=== PATIENT | male | born 1960 | race American Indian/Alaskan Native ===

== ENCOUNTER 2018-05-06 12:08 | Inpatient (IN) | payer OTHER ==
[2018-05-06] MEDS ORDERED: SOLU-Medrol IV ONE (13:41)
[2018-05-06] MEDS ORDERED: PROVENTIL IH ONE (13:41)
[2018-05-06] MEDS ORDERED: ATROVENT IH ONE (13:41)
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
[2018-05-06 13:48] LABS: Hematocrit 41.2 % (35.5-45.6); Hemoglobin 13.8 gm/dl (11.8-15.2); Mean Corpuscular HGB Conc 33 % (32-34); Mean Corpuscular Hemoglobin 29 pg (28-32); Mean Corpuscular Volume 87 fl (84-94); Platelet Count 296 K/mm3 (140-440); Red Blood Count 4.73 M/mm3 (3.65-5.03); Red Cell Distribution Width 13.7 % (13.2-15.2)
--- NOTE | 2018-05-06 13:58 | XRay Report ---
FINAL REPORT EXAM: XR CHEST 1V AP HISTORY: Dyspnea TECHNIQUE: Frontal portable examination of the chest PRIORS: None FINDINGS: Technologist reports left letter marker placed on right side of the patient. Limited examination due to prominent soft tissue attenuation. Cardiac silhouette and body habitus obscures the left lung base. Nonspecific streaky densities are present bilaterally with slight central predominance. This interstitial prominence may represent interstitial and/or vascular markings. There is no focal pulmonary consolidation. No evidence of pleural effusion or pneumothorax. The cardiac silhouette size is slightly enlarged. No evidence of acute skeletal pathology. IMPRESSION: Nonspecific interstitial prominence may reflect scarring or fibrosis. Acute considerations include reactive airways disease, vascular congestion, interstitial edema, viral process, or interstitial pneumonitis. Slight cardiomegaly
[2018-05-06 14:01] LABS: INR 0.98 (0.87-1.13)
[2018-05-06 14:02] LABS: Partial Thromboplastin Time 25.2 Sec. (24.2-36.6)
[2018-05-06 14:05] LABS: Alanine Aminotransferase 14 units/L (7-56); Albumin 3.8 g/dL (3.9-5); BUN/Creatinine Ratio 18; Blood Urea Nitrogen 14 mg/dL (9-20); Calcium 9.7 mg/dL (8.4-10.2); Hemolysis Index 6
[2018-05-06 14:47] LABS: Band Neutrophils # (Manual) 0.6 K/mm3; Basophils % (Manual) 0 % (0.0-1.8); Total Cells Counted 100
--- NOTE | 2018-05-06 15:35 | Cat Scan Report ---
FINAL REPORT EXAM: CT ANGIO CHEST HISTORY: SOB, hypoxia, recent travel TECHNIQUE: CT examination of the chest with IV contrast CT angiographic 2D and thick slab 3D image post-processing PRIORS: One-view chest 05/06/2018 FINDINGS: Cardiomegaly without pericardial effusion. Intact normal caliber thoracic aorta. Normal-appearing esophagus. No hilar mass or mediastinal adenopathy. Main pulmonary artery caliber larger than ascending thoracic aorta raises suspicion of vascular congestion and/or pulmonary arterial hypertension. The visualized pulmonary arteries are diffusely patent bilaterally. There is no filling defect to suggest PE. 4 mm nonobstructing right renal calculus. 2 mm nonobstructing left renal calculus. Colonic diverticulosis. No acute fracture. Multifocal nonspecific patchy opacities are noted in both lungs involving the posterior right upper lobe, posterior right middle lobe, posteromedial right lower lobe, and posterior inferior left lower lobe. No pneumothorax or pleural effusion. Slight pulmonary consolidation in the region of the opacities. Small subpleural pneumatoceles left upper lobe posteriorly. No separately identified lung mass. IMPRESSION: Cardiomegaly Main pulmonary artery caliber larger than ascending aorta may reflect vascular congestion and/or pulmonary arterial hypertension Multiple nonspecific pulmonary parenchymal opacities may be a combination of atelectasis, edema, and/or pneumonia. There may also be an underlying component of scarring Bilateral nonobstructing renal calculi No CT evidence of PE
[2018-05-06] MEDS ORDERED: TYLENOL PO ONE (18:03)
[2018-05-06] MEDS: HEPARIN SUB-Q SCH (22:09)
[2018-05-07] MEDS ORDERED: ZOFRAN IV PRN (00:02)
[2018-05-07] MEDS ORDERED: MORPHINE IV PRN (00:02)
[2018-05-07] MEDS ORDERED: SODIUM CHLORIDE FLUSH SYRINGE 10 ML IV PRN (00:02)
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
[2018-05-07] MEDS: SOLU-Medrol IV SCH ×3 (01:31→16:30)
[2018-05-07 05:41] LABS: BUN/Creatinine Ratio 19; Blood Urea Nitrogen 13 mg/dL (9-20); Calcium 9.6 mg/dL (8.4-10.2); Hemolysis Index 15
[2018-05-07] MEDS: HEPARIN SUB-Q SCH ×3 (06:51→22:17)
[2018-05-07] MEDS: DUONEB *Not for PRN Use IH SCH ×4 (08:29→20:07)
[2018-05-07] MEDS: LEVAQUIN 750MG/150ML 750 MG/150 ML BAG IV SCH (09:34)
[2018-05-07] MEDS: PEPCID PO SCH ×2 (09:35→22:11)
[2018-05-07] MEDS: COZAAR PO SCH (09:35)
[2018-05-07] MEDS: HCTZ PO SCH (09:35)
[2018-05-07] MEDS: SODIUM CHLORIDE FLUSH SYRINGE 10 ML IV SCH ×2 (09:36→22:00)
[2018-05-07] MEDS: TYLENOL PO PRN ×4 (09:38→22:38)
[2018-05-07] MEDS ORDERED: TELMISARTAN PO SCH (10:00)
[2018-05-07] MEDS ORDERED: HYDROCHLOROTHIAZID PO SCH (10:00)
--- NOTE | 2018-05-07 11:38 | Progress Note ---
Assessment and Plan Assessment and plan: Patient is a 57 yo man with a history of prostate cancer, hypertension, asthma and chronic hypoxic respiratory failure on 4L O2 at home due to ILD on Rituxan who pw SOB. He is visiting from [place] as an [facility]. He came without any of his medications including inhalers or nebulizer treatments. Pulse Ox dropped into the mid 80s in ED. He did call his duct layer supervisor, Dr. Gore, from [facility], who suggested that he go to the closest emergency department. * CTA chest IMPRESSION: Cardiomegaly Main pulmonary artery caliber larger than ascending aorta may reflect vascular congestion and/or pulmonary arterial hypertension Multiple nonspecific pulmonary parenchymal opacities may be a combination of atelectasis, edema, and/or pneumonia. There may also be an underlying component of scarring Bilateral nonobstructing renal calculi, No CT evidence of PE Acute on chronic respiratory failure with hypoxia Patient needs oxygen on regular basis. Patient is displaced from [facility] to [employer] Case management consulted whether he can get temporay O2 supply from his Oxygen company IV solumedrol and Duonebs initiated Interstitial lung disease with suspected bilateral aspiration pneumonia Duonebs IV Levaquin and IV Solumedrol Patient on Prednisone 10 mg to 15 mg po qd at home consult Pulmonology HTN (hypertension) Cont antihypertensives, low salt diet DVT prophylaxis On Lovenox History Interval history: Patient was seen and examined. Follow-up on current diagnosis of sob, improved some. Overnight uneventful. Patient denies any chest pain, shortness breath, nausea/vomiting or severe headaches. Imaging, nursing note, chart, labs and old chart reviewed. Discussed with patient. Hospitalist Physical - Physical exam Narrative exam: GEN: WDWN, NAD, morbid obese bmi 42.3, Awake, Alert, Orientated x 3 HEENT: NCAT, EOMI, PERRL, OP Clear NECK: supple, no adenopathy, no thyromegaly, no JVD CVS/HEART: RRR, normal S1S2, pulses present bilaterally CHEST/LUNGS: bilateral inspiratory crackles, Symmetrical chest expansion, good air entry bilaterally GI/Abdomen: soft, NTND, good bowel sounds, no guarding or rebound /Bladder: no suprapubic tenderness, no CVA or paraspinal tenderness EXT/Skin: leg edema, no obvious rash MSK: FROM x 4 Neuro: CN 2-12 grossly intact, no new focal deficits Psych: calm - Constitutional Vitals: Temp Pulse Resp BP Pulse Ox 97.9 F 89 20 138/78 91 05/07/18 04:16 05/07/18 08:45 05/07/18 08:45 05/07/18 04:16 05/07/18 08:32 General appearance: Present: no acute distress, well-nourished Results - Labs CBC & Chem 7: 05/06/18 13:30 05/07/18 04:22 Labs: Laboratory Last Values WBC 9.2 K/mm3 (4.5-11.0) 05/06/18 13:30 RBC 4.73 M/mm3 (3.65-5.03) 05/06/18 13:30 Hgb 13.8 gm/dl (11.8-15.2) 05/06/18 13:30 Hct 41.2 % (35.5-45.6) 05/06/18 13:30 MCV 87 fl (84-94) 05/06/18 13:30 MCH 29 pg (28-32) 05/06/18 13:30 MCHC 33 % (32-34) 05/06/18 13:30 RDW 13.7 % (13.2-15.2) 05/06/18 13:30 Plt Count 296 K/mm3 (140-440) 05/06/18 13:30 Add Manual Diff Complete 05/06/18 13:30 Total Counted 100 05/06/18 13:30 Seg Neutrophils % Field Artillery Operations Specialist 05/06/18 13:30 Seg Neuts % (Manual) 90.0 % (40.0-70.0) H 05/06/18 13:30 Band Neutrophils % 6.0 % 05/06/18 13:30 Lymphocytes % (Manual) 2.0 % (13.4-35.0) L 05/06/18 13:30 Reactive Lymphs % (Man) 0 % 05/06/18 13:30 Monocytes % (Manual) 1.0 % (0.0-7.3) 05/06/18 13:30 Eosinophils % (Manual) 1.0 % (0.0-4.3) 05/06/18 13:30 Basophils % (Manual) 0 % (0.0-1.8) 05/06/18 13:30 Metamyelocytes % 0 % 05/06/18 13:30 Myelocytes % 0 % 05/06/18 13:30 Promyelocytes % 0 % 05/06/18 13:30 Blast Cells % 0 % 05/06/18 13:30 Nucleated RBC % Not Reportable 05/06/18 13:30 Seg Neutrophils # Man 8.3 K/mm3 (1.8-7.7) H 05/06/18 13:30 Band Neutrophils # 0.6 K/mm3 05/06/18 13:30 Lymphocytes # (Manual) 0.2 K/mm3 (1.2-5.4) L 05/06/18 13:30 Abs React Lymphs (Man) 0.0 K/mm3 05/06/18 13:30 Monocytes # (Manual) 0.1 K/mm3 (0.0-0.8) 05/06/18 13:30 Eosinophils # (Manual) 0.1 K/mm3 (0.0-0.4) 05/06/18 13:30 Basophils # (Manual) 0.0 K/mm3 (0.0-0.1) 05/06/18 13:30 Metamyelocytes # 0.0 K/mm3 05/06/18 13:30 Myelocytes # 0.0 K/mm3 05/06/18 13:30 Promyelocytes # 0.0 K/mm3 05/06/18 13:30 Blast Cells # 0.0 K/mm3 05/06/18 13:30 WBC Morphology Not Reportable 05/06/18 13:30 Hypersegmented Neuts Not Reportable 05/06/18 13:30 Hyposegmented Neuts Not Reportable 05/06/18 13:30 Hypogranular Neuts Not Reportable 05/06/18 13:30 Smudge Cells Not Reportable 05/06/18 13:30 Toxic Granulation Not Reportable 05/06/18 13:30 Toxic Vacuolation Not Reportable 05/06/18 13:30 Dohle Bodies Not Reportable 05/06/18 13:30 Pelger-Huet Anomaly Not Reportable 05/06/18 13:30 Ines Rods Not Reportable 05/06/18 13:30 Platelet Estimate Not Reportable 05/06/18 13:30 Clumped Platelets Not Reportable 05/06/18 13:30 Plt Clumps, EDTA Not Reportable 05/06/18 13:30 Large Platelets Not Reportable 05/06/18 13:30 Giant Platelets Not Reportable 05/06/18 13:30 Platelet Satelliting Not Reportable 05/06/18 13:30 Plt Morphology Comment Not Reportable 05/06/18 13:30 RBC Morphology Not Reportable 05/06/18 13:30 Dimorphic RBCs Not Reportable 05/06/18 13:30 Polychromasia Few 05/06/18 13:30 Hypochromasia Not Reportable 05/06/18 13:30 Poikilocytosis Not Reportable 05/06/18 13:30 Anisocytosis Not Reportable 05/06/18 13:30 Microcytosis Not Reportable 05/06/18 13:30 Macrocytosis Not Reportable 05/06/18 13:30 Spherocytes Not Reportable 05/06/18 13:30 Pappenheimer Bodies Not Reportable 05/06/18 13:30 Sickle Cells Not Reportable 05/06/18 13:30 Target Cells Not Reportable 05/06/18 13:30 Tear Drop Cells Not Reportable 05/06/18 13:30 Ovalocytes Not Reportable 05/06/18 13:30 Helmet Cells Not Reportable 05/06/18 13:30 Delgado[place] Bodies Not Reportable 05/06/18 13:30 [place] Rings Not Reportable 05/06/18 13:30 Dustin Cells Not Reportable 05/06/18 13:30 Bite Cells Not Reportable 05/06/18 13:30 Crenated Cell Not Reportable 05/06/18 13:30 Elliptocytes Not Reportable 05/06/18 13:30 Acanthocytes (Spur) Not Reportable 05/06/18 13:30 Rouleaux Not Reportable 05/06/18 13:30 Hemoglobin C Crystals Not Reportable 05/06/18 13:30 Schistocytes Not Reportable 05/06/18 13:30 Malaria parasites Not Reportable 05/06/18 13:30 Herberth Bodies Not Reportable 05/06/18 13:30 Hem Pathologist Commnt No 05/06/18 13:30 PT 13.5 Sec. (12.2-14.9) 05/06/18 13:30 INR 0.98 (0.87-1.13) 05/06/18 13:30 APTT 25.2 Sec. (24.2-36.6) 05/06/18 13:30 D-Dimer 269.50 ng/mlDDU (0-234) H 05/06/18 13:30 Sodium 139 mmol/L (137-145) 05/07/18 04:22 Potassium 4.2 mmol/L (3.6-5.0) 05/07/18 04:22 Chloride 103.2 mmol/L (98-107) 05/07/18 04:22 Carbon Dioxide 22 mmol/L (22-30) 05/07/18 04:22 Anion Gap 18 mmol/L 05/07/18 04:22 BUN 13 mg/dL (9-20) 05/07/18 04:22 Creatinine 0.7 mg/dL (0.8-1.5) L 05/07/18 04:22 Estimated GFR > 60 ml/min 05/07/18 04:22 BUN/Creatinine Ratio 19 % 05/07/18 04:22 Glucose 177 mg/dL (75-100) H 05/07/18 04:22 Calcium 9.6 mg/dL (8.4-10.2) 05/07/18 04:22 Total Bilirubin 0.20 mg/dL (0.1-1.2) 05/06/18 13:30 AST 14 units/L (5-40) 05/06/18 13:30 ALT 14 units/L (7-56) 05/06/18 13:30 Alkaline Phosphatase 75 units/L (35-129) 05/06/18 13:30 Troponin T < 0.010 ng/mL (0.00-0.029) 05/06/18 13:30 NT-Pro-B Natriuret Pep 17.56 pg/mL (0-900) 05/06/18 13:30 Total Protein 7.8 g/dL (6.3-8.2) 05/06/18 13:30 Albumin 3.8 g/dL (3.9-5) L 05/06/18 13:30 Albumin/Globulin Ratio 1.0 % 05/06/18 13:30
[2018-05-07] MEDS ORDERED: EMPAGLIFLOZIN 10 MG PO SCH (14:15)
[2018-05-07] MEDS ORDERED: CIALIS 5 MG PO SCH (14:15)
[2018-05-07] MEDS ORDERED: D50W (25GM) Syringe IV PRN (15:08)
[2018-05-07] MEDS: HumaLOG SUB-Q SCH ×2 (16:30→22:18)
[2018-05-07] MEDS ORDERED: NEXIUM 20 MG PO SCH (16:30)
[2018-05-07] MEDS: CELLCEPT PO SCH ×2 (16:50→22:12)
[2018-05-07] MEDS: MEPRON PO SCH (16:51)
[2018-05-07] MEDS: COLACE PO SCH ×2 (16:51→22:14)
[2018-05-07] MEDS: LASIX PO SCH (16:53)
[2018-05-07] MEDS: PROTONIX PO SCH (16:58)
[2018-05-07] MEDS ORDERED: NON-FORMULARY (Melatonin [Melatin] 3 MG) PO SCH (22:00)
[2018-05-07] MEDS: FLOMAX PO SCH (22:13)
[2018-05-07] MEDS: DESYREL PO SCH (22:44)
[2018-05-08] MEDS: SOLU-Medrol IV SCH ×4 (01:10→22:14)
[2018-05-08 05:43] LABS: Hematocrit 42.2 % (35.5-45.6); Mean Corpuscular HGB Conc 33 % (32-34); Mean Corpuscular Hemoglobin 29 pg (28-32); Mean Corpuscular Volume 87 fl (84-94); Platelet Count 319 K/mm3 (140-440); Red Blood Count 4.87 M/mm3 (3.65-5.03)
[2018-05-08 05:59] LABS: Alanine Aminotransferase 14 units/L (7-56); Albumin 3.8 g/dL (3.9-5); BUN/Creatinine Ratio 18; Blood Urea Nitrogen 14 mg/dL (9-20); Calcium 9.6 mg/dL (8.4-10.2); Hemolysis Index 5
[2018-05-08] MEDS: HEPARIN SUB-Q SCH ×3 (06:02→22:15)
[2018-05-08 06:51] LABS: Basophils % (Manual) 0 % (0.0-1.8); Eosinophils % (Manual) 0 % (0.0-4.3); Platelet Estimate Consistent w Auto; Total Cells Counted 100
[2018-05-08] MEDS: DUONEB *Not for PRN Use IH SCH ×4 (07:29→19:31)
[2018-05-08] MEDS: HumaLOG SUB-Q SCH ×4 (07:30→22:27)
[2018-05-08] MEDS ORDERED: CALCIUM PO SCH (10:00)
[2018-05-08] MEDS ORDERED: LASIX PO SCH (10:00)
[2018-05-08] MEDS ORDERED: CHOLECALCIFEROL PO SCH (10:00)
[2018-05-08] MEDS ORDERED: VITAMIN D3 PO SCH (10:00)
--- NOTE | 2018-05-08 10:24 | Progress Note ---
Assessment and Plan Assessment and plan: Patient is a 57 yo man with a history of prostate cancer, hypertension, asthma and chronic hypoxic respiratory failure on 4L O2 at home due to ILD on Rituxan who pw SOB. He is visiting from [place] as an [facility]. He came without any of his medications including inhalers or nebulizer treatments. Pulse Ox dropped into the mid 80s in ED. He did call his lance crewmember, Dr. Gore, from [facility], who suggested that he go to the closest emergency department. * CTA chest IMPRESSION: Cardiomegaly Main pulmonary artery caliber larger than ascending aorta may reflect vascular congestion and/or pulmonary arterial hypertension Multiple nonspecific pulmonary parenchymal opacities may be a combination of atelectasis, edema, and/or pneumonia. There may also be an underlying component of scarring Bilateral nonobstructing renal calculi, No CT evidence of PE Acute on chronic respiratory failure with hypoxia Patient needs oxygen on regular basis. Patient is displaced from [facility] to [employer] [place], Case management consulted whether he can get temporay O2 supply from his Oxygen company IV solumedrol and Duonebs initiated Interstitial lung disease with suspected bilateral aspiration pneumonia/ pneumonitis Duonebs IV Levaquin and IV Solumedrol, Patient on Prednisone 10 mg to 15 mg po qd at home, consulted Pulmonology, await their evaluation, add mucinex Leukocytosis, most likely reactive from iv steroids HTN (hypertension) Cont antihypertensives, low salt diet DVT prophylaxis On Lovenox Hyperglycemia worsened by steroids: check a1c, on ssi GI prophylaxis: oral protonix Nutrition: cho/cardiac Advance care planning: full code Disposition: continue inpatient care, await Pulmonology evaluation, start to wean down iv steriods, start mucinex and tessalon perles today, anticipate d/c once Pulm clears. He will need refill on his home medications/ prescriptions upon discharge. History Interval history: Patient was seen and examined. Follow-up on current diagnosis of sob, improved some. Overnight uneventful. Patient denies any chest pain, shortness breath, nausea/vomiting or severe headaches. Imaging, nursing note, chart, labs and old chart reviewed. Discussed with patient. He c/o cough and phlegm getting stuck in his throat. He also called his PCP, Dr. Gore and spoke with his triage nurse Chloe. I also spoke with her on speakerphone. She will send his medication and last progress note via Fax per patient wishes. Hospitalist Physical - Physical exam Narrative exam: GEN: WDWN, NAD, morbid obese bmi 42.3, Awake, Alert, Orientated x 3 HEENT: NCAT, EOMI, PERRL, OP Clear NECK: supple, no adenopathy, no thyromegaly, no JVD CVS/HEART: RRR, normal S1S2, pulses present bilaterally CHEST/LUNGS: bilateral inspiratory crackles, Symmetrical chest expansion, good air entry bilaterally GI/Abdomen: soft, NTND, good bowel sounds, no guarding or rebound /Bladder: no suprapubic tenderness, no CVA or paraspinal tenderness EXT/Skin: leg edema, no obvious rash MSK: FROM x 4 Neuro: CN 2-12 grossly intact, no new focal deficits Psych: calm - Constitutional Vitals: Temp Pulse Resp BP Pulse Ox 97.8 F 89 18 120/71 92 05/08/18 05:21 05/08/18 07:37 05/08/18 07:37 05/08/18 05:21 05/08/18 07:30 General appearance: Present: no acute distress, well-nourished Results - Labs CBC & Chem 7: 05/08/18 04:28 05/08/18 04:28 Labs: Laboratory Last Values WBC 14.7 K/mm3 (4.5-11.0) H 05/08/18 04:28 RBC 4.87 M/mm3 (3.65-5.03) 05/08/18 04:28 Hgb 14.0 gm/dl (11.8-15.2) 05/08/18 04:28 Hct 42.2 % (35.5-45.6) 05/08/18 04:28 MCV 87 fl (84-94) 05/08/18 04:28 MCH 29 pg (28-32) 05/08/18 04:28 MCHC 33 % (32-34) 05/08/18 04:28 RDW 14.0 % (13.2-15.2) 05/08/18 04:28 Plt Count 319 K/mm3 (140-440) 05/08/18 04:28 Add Manual Diff Complete 05/08/18 04:28 Total Counted 100 05/08/18 04:28 Seg Neutrophils % Hospitality Services Manager 05/08/18 04:28 Seg Neuts % (Manual) 99.0 % (40.0-70.0) H 05/08/18 04:28 Band Neutrophils % 0 % 05/08/18 04:28 Lymphocytes % (Manual) 0 % (13.4-35.0) L 05/08/18 04:28 Reactive Lymphs % (Man) 0 % 05/08/18 04:28 Monocytes % (Manual) 1.0 % (0.0-7.3) 05/08/18 04:28 Eosinophils % (Manual) 0 % (0.0-4.3) 05/08/18 04:28 Basophils % (Manual) 0 % (0.0-1.8) 05/08/18 04:28 Metamyelocytes % 0 % 05/08/18 04:28 Myelocytes % 0 % 05/08/18 04:28 Promyelocytes % 0 % 05/08/18 04:28 Blast Cells % 0 % 05/08/18 04:28 Nucleated RBC % Not Reportable 05/08/18 04:28 Seg Neutrophils # Man 14.6 K/mm3 (1.8-7.7) H 05/08/18 04:28 Band Neutrophils # 0.0 K/mm3 05/08/18 04:28 Lymphocytes # (Manual) 0.0 K/mm3 (1.2-5.4) L 05/08/18 04:28 Abs React Lymphs (Man) 0.0 K/mm3 05/08/18 04:28 Monocytes # (Manual) 0.1 K/mm3 (0.0-0.8) 05/08/18 04:28 Eosinophils # (Manual) 0.0 K/mm3 (0.0-0.4) 05/08/18 04:28 Basophils # (Manual) 0.0 K/mm3 (0.0-0.1) 05/08/18 04:28 Metamyelocytes # 0.0 K/mm3 05/08/18 04:28 Myelocytes # 0.0 K/mm3 05/08/18 04:28 Promyelocytes # 0.0 K/mm3 05/08/18 04:28 Blast Cells # 0.0 K/mm3 05/08/18 04:28 WBC Morphology Not Reportable 05/08/18 04:28 Hypersegmented Neuts Not Reportable 05/08/18 04:28 Hyposegmented Neuts Not Reportable 05/08/18 04:28 Hypogranular Neuts Not Reportable 05/08/18 04:28 Smudge Cells Not Reportable 05/08/18 04:28 Toxic Granulation Not Reportable 05/08/18 04:28 Toxic Vacuolation Not Reportable 05/08/18 04:28 Dohle Bodies Not Reportable 05/08/18 04:28 Pelger-Huet Anomaly Not Reportable 05/08/18 04:28 Ines Rods Not Reportable 05/08/18 04:28 Platelet Estimate Consistent w auto 05/08/18 04:28 Clumped Platelets Not Reportable 05/08/18 04:28 Plt Clumps, EDTA Not Reportable 05/08/18 04:28 Large Platelets Not Reportable 05/08/18 04:28 Giant Platelets Not Reportable 05/08/18 04:28 Platelet Satelliting Not Reportable 05/08/18 04:28 Plt Morphology Comment Not Reportable 05/08/18 04:28 RBC Morphology Not Reportable 05/08/18 04:28 Dimorphic RBCs Not Reportable 05/08/18 04:28 Polychromasia Not Reportable 05/08/18 04:28 Hypochromasia Not Reportable 05/08/18 04:28 Poikilocytosis Not Reportable 05/08/18 04:28 Anisocytosis Not Reportable 05/08/18 04:28 Microcytosis Not Reportable 05/08/18 04:28 Macrocytosis Not Reportable 05/08/18 04:28 Spherocytes Not Reportable 05/08/18 04:28 Pappenheimer Bodies Not Reportable 05/08/18 04:28 Sickle Cells Not Reportable 05/08/18 04:28 Target Cells Not Reportable 05/08/18 04:28 Tear Drop Cells Not Reportable 05/08/18 04:28 Ovalocytes Not Reportable 05/08/18 04:28 Helmet Cells Not Reportable 05/08/18 04:28 Delgado-[place] Bodies Not Reportable 05/08/18 04:28 [place] Rings Not Reportable 05/08/18 04:28 Dustin Cells Not Reportable 05/08/18 04:28 Bite Cells Not Reportable 05/08/18 04:28 Crenated Cell Not Reportable 05/08/18 04:28 Elliptocytes Not Reportable 05/08/18 04:28 Acanthocytes (Spur) Not Reportable 05/08/18 04:28 Rouleaux Not Reportable 05/08/18 04:28 Hemoglobin C Crystals Not Reportable 05/08/18 04:28 Schistocytes Not Reportable 05/08/18 04:28 Malaria parasites Not Reportable 05/08/18 04:28 Herber[place] Bodies Not Reportable 05/08/18 04:28 Hem Pathologist Commnt No 05/08/18 04:28 PT 13.5 Sec. (12.2-14.9) 05/06/18 13:30 INR 0.98 (0.87-1.13) 05/06/18 13:30 APTT 25.2 Sec. (24.2-36.6) 05/06/18 13:30 D-Dimer 269.50 ng/mlDDU (0-234) H 05/06/18 13:30 Sodium 140 mmol/L (137-145) 05/08/18 04:28 Potassium 4.2 mmol/L (3.6-5.0) 05/08/18 04:28 Chloride 101.5 mmol/L (98-107) 05/08/18 04:28 Carbon Dioxide 24 mmol/L (22-30) 05/08/18 04:28 Anion Gap 19 mmol/L 05/08/18 04:28 BUN 14 mg/dL (9-20) 05/08/18 04:28 Creatinine 0.8 mg/dL (0.8-1.5) 05/08/18 04:28 Estimated GFR > 60 ml/min 05/08/18 04:28 BUN/Creatinine Ratio 18 % 05/08/18 04:28 Glucose 224 mg/dL (75-100) H 05/08/18 04:28 POC Glucose 188 (70-105) H 05/08/18 07:54 Calcium 9.6 mg/dL (8.4-10.2) 05/08/18 04:28 Total Bilirubin 0.20 mg/dL (0.1-1.2) 05/08/18 04:28 AST 12 units/L (5-40) 05/08/18 04:28 ALT 14 units/L (7-56) 05/08/18 04:28 Alkaline Phosphatase 71 units/L (35-129) 05/08/18 04:28 Troponin T < 0.010 ng/mL (0.00-0.029) 05/06/18 13:30 NT-Pro-B Natriuret Pep 17.56 pg/mL (0-900) 05/06/18 13:30 Total Protein 7.7 g/dL (6.3-8.2) 05/08/18 04:28 Albumin 3.8 g/dL (3.9-5) L 05/08/18 04:28 Albumin/Globulin Ratio 1.0 % 05/08/18 04:28
[2018-05-08] MEDS: COLACE PO SCH ×2 (10:36→22:14)
[2018-05-08] MEDS: OYSCO D 500 MG-200 UNIT PO SCH (10:37)
[2018-05-08] MEDS: PROTONIX PO SCH (10:37)
[2018-05-08] MEDS: LASIX PO SCH (10:37)
[2018-05-08] MEDS: HCTZ PO SCH (10:37)
[2018-05-08] MEDS: CELLCEPT PO SCH ×2 (10:38→22:13)
[2018-05-08] MEDS: COZAAR PO SCH (10:38)
[2018-05-08] MEDS: MEPRON PO SCH (10:39)
[2018-05-08] MEDS: LEVAQUIN 750MG/150ML 750 MG/150 ML BAG IV SCH (10:39)
[2018-05-08] MEDS: SODIUM CHLORIDE FLUSH SYRINGE 10 ML IV SCH ×2 (10:40→22:28)
[2018-05-08] MEDS: PEPCID PO SCH ×2 (10:40→22:13)
[2018-05-08] MEDS: MUCINEX ER PO SCH ×2 (13:45→22:14)
[2018-05-08] MEDS: TESSALON PERLES PO SCH ×2 (13:45→22:14)
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
[2018-05-08] MEDS: FLOMAX PO SCH (22:14)
[2018-05-08] MEDS: DESYREL PO SCH (22:14)
[2018-05-09] MEDS: SOLU-Medrol IV SCH ×3 (04:30→22:08)
[2018-05-09 04:57] LABS: Hematocrit 43.6 % (35.5-45.6); Hemoglobin 14.6 gm/dl (11.8-15.2); Mean Corpuscular HGB Conc 33 % (32-34); Mean Corpuscular Hemoglobin 29 pg (28-32); Mean Corpuscular Volume 87 fl (84-94); Platelet Count 328 K/mm3 (140-440); Red Blood Count 5.03 M/mm3 (3.65-5.03); Red Cell Distribution Width 13.9 % (13.2-15.2)
[2018-05-09 05:14] LABS: BUN/Creatinine Ratio 23; Blood Urea Nitrogen 21 mg/dL (9-20); Calcium 9.3 mg/dL (8.4-10.2); Hemolysis Index 9
[2018-05-09] MEDS: HEPARIN SUB-Q SCH ×3 (05:55→22:08)
[2018-05-09] MEDS: TESSALON PERLES PO SCH ×3 (05:56→22:09)
[2018-05-09] MEDS: TYLENOL PO PRN ×2 (06:00→09:03)
[2018-05-09] MEDS: HumaLOG SUB-Q SCH ×4 (08:47→22:08)
[2018-05-09] MEDS: CELLCEPT PO SCH ×2 (08:59→22:08)
[2018-05-09] MEDS: COLACE PO SCH ×2 (08:59→22:09)
[2018-05-09] MEDS: LEVAQUIN 750MG/150ML 750 MG/150 ML BAG IV SCH (08:59)
[2018-05-09] MEDS: MEPRON PO SCH (09:00)
[2018-05-09] MEDS: COZAAR PO SCH (09:00)
[2018-05-09] MEDS: HCTZ PO SCH (09:00)
[2018-05-09] MEDS: LASIX PO SCH (09:01)
[2018-05-09] MEDS: PROTONIX PO SCH (09:01)
[2018-05-09] MEDS: PEPCID PO SCH ×2 (09:01→22:09)
[2018-05-09] MEDS: OYSCO D 500 MG-200 UNIT PO SCH (09:01)
[2018-05-09] MEDS: DUONEB *Not for PRN Use IH SCH ×4 (09:28→20:19)
[2018-05-09] MEDS: MUCINEX ER PO SCH ×2 (10:21→22:09)
[2018-05-09] MEDS: SODIUM CHLORIDE FLUSH SYRINGE 10 ML IV SCH ×2 (10:21→22:10)
--- NOTE | 2018-05-09 12:35 | Progress Note ---
Assessment and Plan Acute on chronic respiratory failure. Appears to be improving or at least stable at this point Interstitial lung disease -Possibly cryptogenic pneumonia by history, on immunosuppressive therapy with prednisone/CellCept/Rituxan infusion ABDIEL. On BiPAP at home plus oxygen 2 L/m Prediabetes. Per history Hypertension Obesity Recommendations Keep oxymetry over 90% at all times Currently on Solu-Medrol 80 mg IV. Discussed with hospitalist to switch him to prednisone 30 mg daily and monitor blood sugar status Continue CellCept at current dose Monitor blood sugars levels, sliding scale and treat as needed Levofloxacin probably optional (a treatment about a month ago), a few so will give minimum of 5 days. DVT prophylaxis The patient can use his BiPAP at the hospital with oxygen bled in at 2-4 L per minute Need to ambulate with nurses and monitor need for additional oxygen support on exercise Discussed with patient and in detail. All questions answered. I'm going to call do today, in order to see what options are available for the patient to be transferred back to [place]. This is her ongoing request. He will definitely need to stay under some degree of medical surveillance with close pulmonary follow-up, until things Stabilize further. Whether This can Be done as an outpatient at this point is not yet clear Subjective Date of service: 05/09/18 Interval history: Reports to be feeling slightly better today. Still complaining of being short of breath with desaturations on his personal oximeter of 87%, when walking to the restroom. Using oxygen 4 L No additional complaints. Very anxious about going back to [place] as soon as possible Objective Vital Signs - 12hr 05/09/18 05/09/18 05/09/18 05:31 08:38 09:00 Temperature 97.7 F Pulse Rate 75 80 78 Pulse Rate [ Anterior Bilateral Throughout] Pulse Rate [ Throughout] Respiratory 20 20 Rate Respiratory Rate [Anterior Bilateral Throughout] Respiratory Rate [ Throughout] Blood Pressure 131/78 144/80 144/80 O2 Sat by Pulse 95 96 Oximetry 05/09/18 05/09/18 05/09/18 09:03 09:30 09:31 Temperature Pulse Rate Pulse Rate [ 73 Anterior Bilateral Throughout] Pulse Rate [ 76 Throughout] Respiratory 16 Rate Respiratory 18 Rate [Anterior Bilateral Throughout] Respiratory 18 Rate [ Throughout] Blood Pressure O2 Sat by Pulse 96 Oximetry 05/09/18 10:03 Temperature Pulse Rate Pulse Rate [ Anterior Bilateral Throughout] Pulse Rate [ Throughout] Respiratory 20 Rate Respiratory Rate [Anterior Bilateral Throughout] Respiratory Rate [ Throughout] Blood Pressure O2 Sat by Pulse Oximetry Constitutional: no acute distress, alert Eyes: non-icteric ENT: oropharynx moist, other (Mallampati 4) Ascultation: Bilateral: clear, diminished breath sounds, rales (fine, and inspiratory, bilateral bases) Integumentary: normal Extremities: no cyanosis, no edema Neurologic: normal mental status, non-focal exam, CN II-XII normal, motor strength normal and Psychiatric: mood appropriate CBC and BMP: 05/09/18 04:36 05/09/18 04:36 ABG, PT/INR, D-dimer: PT/INR, D-dimer PT 13.5 Sec. (12.2-14.9) 05/06/18 13:30 INR 0.98 (0.87-1.13) 05/06/18 13:30 D-Dimer 269.50 ng/mlDDU (0-234) H 05/06/18 13:30 Abnormal lab findings: Abnormal Labs 05/06/18 05/06/18 05/06/18 13:30 13:30 13:30 WBC Seg Neuts % (Manual) 90.0 H Lymphocytes % (Manual) 2.0 L Seg Neutrophils # Man 8.3 H Lymphocytes # (Manual) 0.2 L D-Dimer 269.50 H Chloride BUN Creatinine Glucose 142 H POC Glucose Hemoglobin A1c Albumin 3.8 L 05/07/18 05/07/18 05/07/18 04:22 17:56 21:47 WBC Seg Neuts % (Manual) Lymphocytes % (Manual) Seg Neutrophils # Man Lymphocytes # (Manual) D-Dimer Chloride BUN Creatinine 0.7 L Glucose 177 H POC Glucose 287 H 321 H Hemoglobin A1c Albumin 05/08/18 05/08/18 05/08/18 04:28 04:28 07:54 WBC 14.7 H Seg Neuts % (Manual) 99.0 H Lymphocytes % (Manual) 0 L Seg Neutrophils # Man 14.6 H Lymphocytes # (Manual) 0.0 L D-Dimer Chloride BUN Creatinine Glucose 224 H POC Glucose 188 H Hemoglobin A1c Albumin 3.8 L 05/08/18 05/08/18 05/08/18 12:03 15:49 21:45 WBC Seg Neuts % (Manual) Lymphocytes % (Manual) Seg Neutrophils # Man Lymphocytes # (Manual) D-Dimer Chloride BUN Creatinine Glucose POC Glucose 233 H 235 H 280 H Hemoglobin A1c Albumin 05/09/18 05/09/18 05/09/18 04:36 04:36 04:36 WBC 15.4 H Seg Neuts % (Manual) Lymphocytes % (Manual) Seg Neutrophils # Man Lymphocytes # (Manual) D-Dimer Chloride 95.1 L BUN 21 H Creatinine Glucose 251 H POC Glucose Hemoglobin A1c 7.6 H Albumin 05/09/18 05/09/18 07:34 11:45 WBC Seg Neuts % (Manual) Lymphocytes % (Manual) Seg Neutrophils # Man Lymphocytes # (Manual) D-Dimer Chloride BUN Creatinine Glucose POC Glucose 208 H 243 H Hemoglobin A1c Albumin
[2018-05-09] MEDS: PERCOCET 5/325 PO PRN ×2 (12:49→22:09)
--- NOTE | 2018-05-09 15:20 | Progress Note ---
Assessment and Plan Assessment and plan: Patient is a 57 yo man with a history of prostate cancer, hypertension, asthma and chronic hypoxic respiratory failure on 4L O2 at home due to ILD on Rituxan who pw SOB. He is visiting from [place] as an [place] [facility] [place]. He came without any of his medications including inhalers or nebulizer treatments. Pulse Ox dropped into the mid 80s in ED. He did call his director quality systems, Dr. Gore, from [facility], who suggested that he go to the closest emergency department. pw MERCADO and hypoxia on exertion * CTA chest IMPRESSION: Cardiomegaly Main pulmonary artery caliber larger than ascending aorta may reflect vascular congestion and/or pulmonary arterial hypertension Multiple nonspecific pulmonary parenchymal opacities may be a combination of atelectasis, edema, and/or pneumonia. There may also be an underlying component of scarring Bilateral nonobstructing renal calculi, No CT evidence of PE Acute on chronic respiratory failure with hypoxia Patient needs oxygen on regular basis. Patient is displaced from [facility] to [facility] [place], on 4L at [place] IV solumedrol and Duonebs initiated Patient would like to be transfered to [place], since his doctors are there. Dr Curtis to speak to Dr Gore, was dw case operator, plan to transfer if they accept Interstitial lung disease with suspected bilateral aspiration pneumonia/ pneumonitis Duonebs IV Levaquin and IV Solumedrol, Patient on Prednisone 10 mg to 15 mg po qd at home, consulted Pulmonology, await their evaluation, add mucinex Leukocytosis, most likely reactive from iv steroids HTN (hypertension) Cont antihypertensives, low salt diet DVT prophylaxis On Lovenox Hyperglycemia worsened by steroids: check a1c, on ssi GI prophylaxis: oral protonix Nutrition: cho/cardiac Advance care planning: full code Disposition: continue inpatient care, await Pulmonology evaluation, start to wean down iv steriods, start mucinex and tessalon perles today, anticipate d/c once Pulm clears. He will need refill on his home medications/ prescriptions upon discharge. History Interval history: The nurse noted that patient desaturates on ambulation Review of systems Constitutional: No fevers, no malaise, no joint pains CVS: No chest pain, no orthopnea, , no pedal edema GI: No abdominal pain, no diarrhea, no vomiting, no constipation Respiratory: Complaining of dyspnea on exertion, no wheezing, no coughing Hospitalist Physical - Physical exam Narrative exam: General.: Appears well, no distress, nontoxic HEENT: Moist mucous membranes, extraocular muscles intact, no lymphadenopathy Neck: supple Cardiac: S1-S2 heard Lungs: Dry crackles, decreased air entry Abdomen: soft , nontender, nondistended, bowel sounds positive Extremities: no edema clubbing or cyanosis Skin: no rash or lesions Neurologic: no gross focal deficits Psych: appropriate behavior, appropriate mood, corporative, judgment intact - Constitutional Vitals: Temp Pulse Resp BP Pulse Ox 97.9 F 92 H 24 140/75 97 05/09/18 13:50 05/09/18 13:50 05/09/18 13:50 05/09/18 13:50 05/09/18 13:50 General appearance: Present: no acute distress, well-nourished Results - Labs CBC & Chem 7: 05/09/18 04:36 05/09/18 04:36 Labs: Laboratory Last Values WBC 15.4 K/mm3 (4.5-11.0) H 05/09/18 04:36 RBC 5.03 M/mm3 (3.65-5.03) 05/09/18 04:36 Hgb 14.6 gm/dl (11.8-15.2) 05/09/18 04:36 Hct 43.6 % (35.5-45.6) 05/09/18 04:36 MCV 87 fl (84-94) 05/09/18 04:36 MCH 29 pg (28-32) 05/09/18 04:36 MCHC 33 % (32-34) 05/09/18 04:36 RDW 13.9 % (13.2-15.2) 05/09/18 04:36 Plt Count 328 K/mm3 (140-440) 05/09/18 04:36 Add Manual Diff Complete 05/08/18 04:28 Total Counted 100 05/08/18 04:28 Seg Neutrophils % Cigar Head Holer 05/08/18 04:28 Seg Neuts % (Manual) 99.0 % (40.0-70.0) H 05/08/18 04:28 Band Neutrophils % 0 % 05/08/18 04:28 Lymphocytes % (Manual) 0 % (13.4-35.0) L 05/08/18 04:28 Reactive Lymphs % (Man) 0 % 05/08/18 04:28 Monocytes % (Manual) 1.0 % (0.0-7.3) 05/08/18 04:28 Eosinophils % (Manual) 0 % (0.0-4.3) 05/08/18 04:28 Basophils % (Manual) 0 % (0.0-1.8) 05/08/18 04:28 Metamyelocytes % 0 % 05/08/18 04:28 Myelocytes % 0 % 05/08/18 04:28 Promyelocytes % 0 % 05/08/18 04:28 Blast Cells % 0 % 05/08/18 04:28 Nucleated RBC % Not Reportable 05/08/18 04:28 Seg Neutrophils # Man 14.6 K/mm3 (1.8-7.7) H 05/08/18 04:28 Band Neutrophils # 0.0 K/mm3 05/08/18 04:28 Lymphocytes # (Manual) 0.0 K/mm3 (1.2-5.4) L 05/08/18 04:28 Abs React Lymphs (Man) 0.0 K/mm3 05/08/18 04:28 Monocytes # (Manual) 0.1 K/mm3 (0.0-0.8) 05/08/18 04:28 Eosinophils # (Manual) 0.0 K/mm3 (0.0-0.4) 05/08/18 04:28 Basophils # (Manual) 0.0 K/mm3 (0.0-0.1) 05/08/18 04:28 Metamyelocytes # 0.0 K/mm3 05/08/18 04:28 Myelocytes # 0.0 K/mm3 05/08/18 04:28 Promyelocytes # 0.0 K/mm3 05/08/18 04:28 Blast Cells # 0.0 K/mm3 05/08/18 04:28 WBC Morphology Not Reportable 05/08/18 04:28 Hypersegmented Neuts Not Reportable 05/08/18 04:28 Hyposegmented Neuts Not Reportable 05/08/18 04:28 Hypogranular Neuts Not Reportable 05/08/18 04:28 Smudge Cells Not Reportable 05/08/18 04:28 Toxic Granulation Not Reportable 05/08/18 04:28 Toxic Vacuolation Not Reportable 05/08/18 04:28 Dohle Bodies Not Reportable 05/08/18 04:28 Pelger-Huet Anomaly Not Reportable 05/08/18 04:28 Ines Rods Not Reportable 05/08/18 04:28 Platelet Estimate Consistent w auto 05/08/18 04:28 Clumped Platelets Not Reportable 05/08/18 04:28 Plt Clumps, EDTA Not Reportable 05/08/18 04:28 Large Platelets Not Reportable 05/08/18 04:28 Giant Platelets Not Reportable 05/08/18 04:28 Platelet Satelliting Not Reportable 05/08/18 04:28 Plt Morphology Comment Not Reportable 05/08/18 04:28 RBC Morphology Not Reportable 05/08/18 04:28 Dimorphic RBCs Not Reportable 05/08/18 04:28 Polychromasia Not Reportable 05/08/18 04:28 Hypochromasia Not Reportable 05/08/18 04:28 Poikilocytosis Not Reportable 05/08/18 04:28 Anisocytosis Not Reportable 05/08/18 04:28 Microcytosis Not Reportable 05/08/18 04:28 Macrocytosis Not Reportable 05/08/18 04:28 Spherocytes Not Reportable 05/08/18 04:28 Pappenheimer Bodies Not Reportable 05/08/18 04:28 Sickle Cells Not Reportable 05/08/18 04:28 Target Cells Not Reportable 05/08/18 04:28 Tear Drop Cells Not Reportable 05/08/18 04:28 Ovalocytes Not Reportable 05/08/18 04:28 Helmet Cells Not Reportable 05/08/18 04:28 [place] Bodies Not Reportable 05/08/18 04:28 [place] Rings Not Reportable 05/08/18 04:28 Dustin Cells Not Reportable 05/08/18 04:28 Bite Cells Not Reportable 05/08/18 04:28 Crenated Cell Not Reportable 05/08/18 04:28 Elliptocytes Not Reportable 05/08/18 04:28 Acanthocytes (Spur) Not Reportable 05/08/18 04:28 Rouleaux Not Reportable 05/08/18 04:28 Hemoglobin C Crystals Not Reportable 05/08/18 04:28 Schistocytes Not Reportable 05/08/18 04:28 Malaria parasites Not Reportable 05/08/18 04:28 [place] Bodies Not Reportable 05/08/18 04:28 Hem Pathologist Commnt No 05/08/18 04:28 PT 13.5 Sec. (12.2-14.9) 05/06/18 13:30 INR 0.98 (0.87-1.13) 05/06/18 13:30 APTT 25.2 Sec. (24.2-36.6) 05/06/18 13:30 D-Dimer 269.50 ng/mlDDU (0-234) H 05/06/18 13:30 Sodium 137 mmol/L (137-145) 05/09/18 04:36 Potassium 4.2 mmol/L (3.6-5.0) 05/09/18 04:36 Chloride 95.1 mmol/L (98-107) L 05/09/18 04:36 Carbon Dioxide 26 mmol/L (22-30) 05/09/18 04:36 Anion Gap 20 mmol/L 05/09/18 04:36 BUN 21 mg/dL (9-20) H 05/09/18 04:36 Creatinine 0.9 mg/dL (0.8-1.5) 05/09/18 04:36 Estimated GFR > 60 ml/min 05/09/18 04:36 BUN/Creatinine Ratio 23 % 05/09/18 04:36 Glucose 251 mg/dL (75-100) H 05/09/18 04:36 POC Glucose 243 (70-105) H 05/09/18 11:45 Hemoglobin A1c 7.6 % (4-6) H 05/09/18 04:36 Calcium 9.3 mg/dL (8.4-10.2) 05/09/18 04:36 Total Bilirubin 0.20 mg/dL (0.1-1.2) 05/08/18 04:28 AST 12 units/L (5-40) 05/08/18 04:28 ALT 14 units/L (7-56) 05/08/18 04:28 Alkaline Phosphatase 71 units/L (35-129) 05/08/18 04:28 Troponin T < 0.010 ng/mL (0.00-0.029) 05/06/18 13:30 NT-Pro-B Natriuret Pep 17.56 pg/mL (0-900) 05/06/18 13:30 Total Protein 7.7 g/dL (6.3-8.2) 05/08/18 04:28 Albumin 3.8 g/dL (3.9-5) L 05/08/18 04:28 Albumin/Globulin Ratio 1.0 % 05/08/18 04:28
[2018-05-09] MEDS: DESYREL PO SCH (22:09)
[2018-05-09] MEDS: FLOMAX PO SCH (22:09)
[2018-05-10] MEDS: TESSALON PERLES PO SCH ×3 (06:23→22:08)
[2018-05-10] MEDS: HEPARIN SUB-Q SCH ×3 (06:23→22:09)
[2018-05-10] MEDS: SOLU-Medrol IV SCH ×3 (06:24→18:16)
[2018-05-10] MEDS: TYLENOL PO PRN ×2 (06:28→10:38)
[2018-05-10] MEDS: HumaLOG SUB-Q SCH ×4 (08:16→22:09)
[2018-05-10] MEDS: DUONEB *Not for PRN Use IH SCH ×4 (08:40→20:32)
[2018-05-10] MEDS: LEVAQUIN 750MG/150ML 750 MG/150 ML BAG IV SCH (10:25)
[2018-05-10] MEDS: OYSCO D 500 MG-200 UNIT PO SCH (10:29)
[2018-05-10] MEDS: COLACE PO SCH ×2 (10:29→22:08)
[2018-05-10] MEDS: COZAAR PO SCH (10:30)
[2018-05-10] MEDS: MUCINEX ER PO SCH ×2 (10:30→22:08)
[2018-05-10] MEDS: PEPCID PO SCH ×2 (10:30→22:08)
[2018-05-10] MEDS: HCTZ PO SCH (10:30)
[2018-05-10] MEDS: PROTONIX PO SCH (10:31)
[2018-05-10] MEDS: CELLCEPT PO SCH ×2 (10:31→22:08)
[2018-05-10] MEDS: LASIX PO SCH (10:32)
[2018-05-10] MEDS: MEPRON PO SCH (10:32)
[2018-05-10] MEDS: SODIUM CHLORIDE FLUSH SYRINGE 10 ML IV SCH ×2 (10:33→22:10)
--- NOTE | 2018-05-10 11:33 | Progress Note ---
Assessment and Plan Acute on chronic respiratory failure. Appears to be improving or at least stable at this point Interstitial lung disease -Possibly cryptogenic pneumonia by history, on immunosuppressive therapy with prednisone/CellCept/Rituxan infusion ABDIEL. On BiPAP at home plus oxygen 2 L/m Prediabetes. Per history Hypertension Obesity Recommendations Keep oxymetry over 90% at all times Taper down Solu-Medrol Start Prednisone 30 mg daily , adjust up,per clinical and blood sugar status Continue CellCept at current dose Monitor blood sugars levels, sliding scale and treat as needed Levofloxacin x 5-7 days. DVT prophylaxis The patient can use his BiPAP at the hospital with oxygen bled in at 2-4 L per minute Need to ambulate with nurses and monitor need for additional oxygen support on exercise Discussed with patient in detail. Called [facility] phone yesterday afternoon x 2, no answer. Called [facility] triage nurse through patient phone during rounds. His kerfer machine operator was on ICU rounds, but able to call back later, left message, to discuss his case later this afternoon and review [place]/referral options. Subjective Date of service: 05/10/18 Interval history: Reports to be feeling slightly better today. Still complaining of being short of breath with desaturations on his personal oximeter of 87%, when walking to the restroom. Using oxygen 4 L No additional complaints. Very anxious about going back to [place] as soon as possible Objective Vital Signs - 12hr 05/09/18 05/10/18 05/10/18 23:57 05:53 08:41 Temperature 98.1 F 97.8 F Pulse Rate 70 66 Pulse Rate [ 87 Throughout] Respiratory 20 24 Rate Respiratory 17 Rate [ Throughout] Blood Pressure 118/67 153/94 O2 Sat by Pulse 94 96 97 Oximetry 05/10/18 08:42 Temperature Pulse Rate Pulse Rate [ 88 Throughout] Respiratory Rate Respiratory 19 Rate [ Throughout] Blood Pressure O2 Sat by Pulse Oximetry Constitutional: no acute distress, alert Eyes: non-icteric ENT: oropharynx moist, other (Mallampati 4) Ascultation: Bilateral: clear, diminished breath sounds, rales (fine, and inspiratory, bilateral bases) Integumentary: normal Extremities: no cyanosis, no edema Neurologic: normal mental status, non-focal exam, CN II-XII normal, motor strength normal and Psychiatric: mood appropriate CBC and BMP: 05/09/18 04:36 05/09/18 04:36 ABG, PT/INR, D-dimer: PT/INR, D-dimer PT 13.5 Sec. (12.2-14.9) 05/06/18 13:30 INR 0.98 (0.87-1.13) 05/06/18 13:30 D-Dimer 269.50 ng/mlDDU (0-234) H 05/06/18 13:30 Abnormal lab findings: Abnormal Labs 05/06/18 05/06/18 05/06/18 13:30 13:30 13:30 WBC Seg Neuts % (Manual) 90.0 H Lymphocytes % (Manual) 2.0 L Seg Neutrophils # Man 8.3 H Lymphocytes # (Manual) 0.2 L D-Dimer 269.50 H Chloride BUN Creatinine Glucose 142 H POC Glucose Hemoglobin A1c Albumin 3.8 L 05/07/18 05/07/18 05/07/18 04:22 17:56 21:47 WBC Seg Neuts % (Manual) Lymphocytes % (Manual) Seg Neutrophils # Man Lymphocytes # (Manual) D-Dimer Chloride BUN Creatinine 0.7 L Glucose 177 H POC Glucose 287 H 321 H Hemoglobin A1c Albumin 05/08/18 05/08/18 05/08/18 04:28 04:28 07:54 WBC 14.7 H Seg Neuts % (Manual) 99.0 H Lymphocytes % (Manual) 0 L Seg Neutrophils # Man 14.6 H Lymphocytes # (Manual) 0.0 L D-Dimer Chloride BUN Creatinine Glucose 224 H POC Glucose 188 H Hemoglobin A1c Albumin 3.8 L 05/08/18 05/08/18 05/08/18 12:03 15:49 21:45 WBC Seg Neuts % (Manual) Lymphocytes % (Manual) Seg Neutrophils # Man Lymphocytes # (Manual) D-Dimer Chloride BUN Creatinine Glucose POC Glucose 233 H 235 H 280 H Hemoglobin A1c Albumin 05/09/18 05/09/18 05/09/18 04:36 04:36 04:36 WBC 15.4 H Seg Neuts % (Manual) Lymphocytes % (Manual) Seg Neutrophils # Man Lymphocytes # (Manual) D-Dimer Chloride 95.1 L BUN 21 H Creatinine Glucose 251 H POC Glucose Hemoglobin A1c 7.6 H Albumin 05/09/18 05/09/18 05/09/18 07:34 11:45 16:58 WBC Seg Neuts % (Manual) Lymphocytes % (Manual) Seg Neutrophils # Man Lymphocytes # (Manual) D-Dimer Chloride BUN Creatinine Glucose POC Glucose 208 H 243 H 237 H Hemoglobin A1c Albumin 05/09/18 05/10/18 21:54 07:32 WBC Seg Neuts % (Manual) Lymphocytes % (Manual) Seg Neutrophils # Man Lymphocytes # (Manual) D-Dimer Chloride BUN Creatinine Glucose POC Glucose 304 H 236 H Hemoglobin A1c Albumin
[2018-05-10] MEDS: PERCOCET 5/325 PO PRN (17:31)
[2018-05-10] MEDS: MUCOMYST INHALATION INHALATION SCH (20:32)
--- NOTE | 2018-05-10 21:41 | Progress Note ---
Assessment and Plan Assessment and plan: Patient is a 57 yo man with a history of prostate cancer, hypertension, asthma and chronic hypoxic respiratory failure on 4L O2 at home due to ILD on Rituxan who pw SOB. He is visiting from [place] as an evacuee from [facility] [place]. He came without any of his medications including inhalers or nebulizer treatments. Pulse Ox dropped into the mid 80s in ED. He did call his plant safety engineer, Dr. Gore, from [facility], who suggested that he go to the closest emergency department. pw MERCADO and hypoxia on exertion * CTA chest IMPRESSION: Cardiomegaly Main pulmonary artery caliber larger than ascending aorta may reflect vascular congestion and/or pulmonary arterial hypertension Multiple nonspecific pulmonary parenchymal opacities may be a combination of atelectasis, edema, and/or pneumonia. There may also be an underlying component of scarring Bilateral nonobstructing renal calculi, No CT evidence of PE Acute on chronic respiratory failure with hypoxia Patient needs oxygen on regular basis. Patient is displaced from [facility] to [facility] [place], on 4L at [place] IV solumedrol and Duonebs initiated Patient would like to be transfered to [place], since his doctors are there. Dr Curtis called Dr Gore x2 and left a message, was dw rn case manager hospice, plan to transfer if they accept Interstitial lung disease with suspected bilateral aspiration pneumonia/ pneumonitis Duonebs IV Levaquin and IV Solumedrol, Patient on Prednisone 10 mg to 15 mg po qd at home, consulted Pulmonology, await their evaluation, add mucinex Leukocytosis, most likely reactive from iv steroids HTN (hypertension) Cont antihypertensives, low salt diet DVT prophylaxis On Lovenox Hyperglycemia worsened by steroids: a1c is 7.6, on ssi GI prophylaxis: oral protonix Nutrition: cho/cardiac Advance care planning: full code Disposition: continue inpatient care, await Pulmonology evaluation, anticipate dc in 2-3 days, patient should be able to ambulate with oxygen and maintain sat above 90 prior to dc History Interval history: The nurse noted that patient desaturates on ambulation, he was ambulating on 6 L oxygen Review of systems Constitutional: No fevers, no malaise, no joint pains CVS: No chest pain, no orthopnea, , no pedal edema GI: No abdominal pain, no diarrhea, no vomiting, no constipation Respiratory: Complaining of dyspnea on exertion, no wheezing, no coughing Hospitalist Physical - Physical exam Narrative exam: General.: Appears well, no distress, nontoxic HEENT: Moist mucous membranes, extraocular muscles intact, no lymphadenopathy Neck: supple Cardiac: S1-S2 heard Lungs: Dry crackles, decreased air entry Abdomen: soft , nontender, nondistended, bowel sounds positive Extremities: no edema clubbing or cyanosis Skin: no rash or lesions Neurologic: no gross focal deficits Psych: appropriate behavior, appropriate mood, corporative, judgment intact - Constitutional Vitals: Temp Pulse Resp BP Pulse Ox 98.0 F 78 20 134/84 98 05/10/18 16:54 05/10/18 20:32 05/10/18 20:32 05/10/18 16:54 05/10/18 20:33 General appearance: Present: no acute distress, well-nourished Results - Labs CBC & Chem 7: 05/09/18 04:36 05/09/18 04:36 Labs: Laboratory Last Values WBC 15.4 K/mm3 (4.5-11.0) H 05/09/18 04:36 RBC 5.03 M/mm3 (3.65-5.03) 05/09/18 04:36 Hgb 14.6 gm/dl (11.8-15.2) 05/09/18 04:36 Hct 43.6 % (35.5-45.6) 05/09/18 04:36 MCV 87 fl (84-94) 05/09/18 04:36 MCH 29 pg (28-32) 05/09/18 04:36 MCHC 33 % (32-34) 05/09/18 04:36 RDW 13.9 % (13.2-15.2) 05/09/18 04:36 Plt Count 328 K/mm3 (140-440) 05/09/18 04:36 Add Manual Diff Complete 05/08/18 04:28 Total Counted 100 05/08/18 04:28 Seg Neutrophils % Real Estate Instructor 05/08/18 04:28 Seg Neuts % (Manual) 99.0 % (40.0-70.0) H 05/08/18 04:28 Band Neutrophils % 0 % 05/08/18 04:28 Lymphocytes % (Manual) 0 % (13.4-35.0) L 05/08/18 04:28 Reactive Lymphs % (Man) 0 % 05/08/18 04:28 Monocytes % (Manual) 1.0 % (0.0-7.3) 05/08/18 04:28 Eosinophils % (Manual) 0 % (0.0-4.3) 05/08/18 04:28 Basophils % (Manual) 0 % (0.0-1.8) 05/08/18 04:28 Metamyelocytes % 0 % 05/08/18 04:28 Myelocytes % 0 % 05/08/18 04:28 Promyelocytes % 0 % 05/08/18 04:28 Blast Cells % 0 % 05/08/18 04:28 Nucleated RBC % Not Reportable 05/08/18 04:28 Seg Neutrophils # Man 14.6 K/mm3 (1.8-7.7) H 05/08/18 04:28 Band Neutrophils # 0.0 K/mm3 05/08/18 04:28 Lymphocytes # (Manual) 0.0 K/mm3 (1.2-5.4) L 05/08/18 04:28 Abs React Lymphs (Man) 0.0 K/mm3 05/08/18 04:28 Monocytes # (Manual) 0.1 K/mm3 (0.0-0.8) 05/08/18 04:28 Eosinophils # (Manual) 0.0 K/mm3 (0.0-0.4) 05/08/18 04:28 Basophils # (Manual) 0.0 K/mm3 (0.0-0.1) 05/08/18 04:28 Metamyelocytes # 0.0 K/mm3 05/08/18 04:28 Myelocytes # 0.0 K/mm3 05/08/18 04:28 Promyelocytes # 0.0 K/mm3 05/08/18 04:28 Blast Cells # 0.0 K/mm3 05/08/18 04:28 WBC Morphology Not Reportable 05/08/18 04:28 Hypersegmented Neuts Not Reportable 05/08/18 04:28 Hyposegmented Neuts Not Reportable 05/08/18 04:28 Hypogranular Neuts Not Reportable 05/08/18 04:28 Smudge Cells Not Reportable 05/08/18 04:28 Toxic Granulation Not Reportable 05/08/18 04:28 Toxic Vacuolation Not Reportable 05/08/18 04:28 Dohle Bodies Not Reportable 05/08/18 04:28 Pelger-Huet Anomaly Not Reportable 05/08/18 04:28 Ines Rods Not Reportable 05/08/18 04:28 Platelet Estimate Consistent w auto 05/08/18 04:28 Clumped Platelets Not Reportable 05/08/18 04:28 Plt Clumps, EDTA Not Reportable 05/08/18 04:28 Large Platelets Not Reportable 05/08/18 04:28 Giant Platelets Not Reportable 05/08/18 04:28 Platelet Satelliting Not Reportable 05/08/18 04:28 Plt Morphology Comment Not Reportable 05/08/18 04:28 RBC Morphology Not Reportable 05/08/18 04:28 Dimorphic RBCs Not Reportable 05/08/18 04:28 Polychromasia Not Reportable 05/08/18 04:28 Hypochromasia Not Reportable 05/08/18 04:28 Poikilocytosis Not Reportable 05/08/18 04:28 Anisocytosis Not Reportable 05/08/18 04:28 Microcytosis Not Reportable 05/08/18 04:28 Macrocytosis Not Reportable 05/08/18 04:28 Spherocytes Not Reportable 05/08/18 04:28 Pappenheimer Bodies Not Reportable 05/08/18 04:28 Sickle Cells Not Reportable 05/08/18 04:28 Target Cells Not Reportable 05/08/18 04:28 Tear Drop Cells Not Reportable 05/08/18 04:28 Ovalocytes Not Reportable 05/08/18 04:28 Helmet Cells Not Reportable 05/08/18 04:28 [place] Bodies Not Reportable 05/08/18 04:28 [place] Rings Not Reportable 05/08/18 04:28 Dustin Cells Not Reportable 05/08/18 04:28 Bite Cells Not Reportable 05/08/18 04:28 Crenated Cell Not Reportable 05/08/18 04:28 Elliptocytes Not Reportable 05/08/18 04:28 Acanthocytes (Spur) Not Reportable 05/08/18 04:28 Rouleaux Not Reportable 05/08/18 04:28 Hemoglobin C Crystals Not Reportable 05/08/18 04:28 Schistocytes Not Reportable 05/08/18 04:28 Malaria parasites Not Reportable 05/08/18 04:28 Herberth Bodies Not Reportable 05/08/18 04:28 Hem Pathologist Commnt No 05/08/18 04:28 PT 13.5 Sec. (12.2-14.9) 05/06/18 13:30 INR 0.98 (0.87-1.13) 05/06/18 13:30 APTT 25.2 Sec. (24.2-36.6) 05/06/18 13:30 D-Dimer 269.50 ng/mlDDU (0-234) H 05/06/18 13:30 Sodium 137 mmol/L (137-145) 05/09/18 04:36 Potassium 4.2 mmol/L (3.6-5.0) 05/09/18 04:36 Chloride 95.1 mmol/L (98-107) L 05/09/18 04:36 Carbon Dioxide 26 mmol/L (22-30) 05/09/18 04:36 Anion Gap 20 mmol/L 05/09/18 04:36 BUN 21 mg/dL (9-20) H 05/09/18 04:36 Creatinine 0.9 mg/dL (0.8-1.5) 05/09/18 04:36 Estimated GFR > 60 ml/min 05/09/18 04:36 BUN/Creatinine Ratio 23 % 05/09/18 04:36 Glucose 251 mg/dL (75-100) H 05/09/18 04:36 POC Glucose 220 (70-105) H 05/10/18 21:33 Hemoglobin A1c 7.6 % (4-6) H 05/09/18 04:36 Calcium 9.3 mg/dL (8.4-10.2) 05/09/18 04:36 Total Bilirubin 0.20 mg/dL (0.1-1.2) 05/08/18 04:28 AST 12 units/L (5-40) 05/08/18 04:28 ALT 14 units/L (7-56) 05/08/18 04:28 Alkaline Phosphatase 71 units/L (35-129) 05/08/18 04:28 Troponin T < 0.010 ng/mL (0.00-0.029) 05/06/18 13:30 NT-Pro-B Natriuret Pep 17.56 pg/mL (0-900) 05/06/18 13:30 Total Protein 7.7 g/dL (6.3-8.2) 05/08/18 04:28 Albumin 3.8 g/dL (3.9-5) L 05/08/18 04:28 Albumin/Globulin Ratio 1.0 % 05/08/18 04:28
[2018-05-10] MEDS: FLOMAX PO SCH (22:09)
[2018-05-10] MEDS: DESYREL PO SCH (22:09)
[2018-05-11] MEDS: SOLU-Medrol IV SCH ×5 (01:06→22:21)
[2018-05-11] MEDS: MUCOMYST INHALATION INHALATION SCH ×3 (02:11→15:00)
[2018-05-11] MEDS: HEPARIN SUB-Q SCH ×3 (05:58→22:23)
[2018-05-11] MEDS: TESSALON PERLES PO SCH ×3 (05:58→22:21)
--- NOTE | 2018-05-11 07:16 | Progress Note ---
Assessment and Plan Acute on chronic respiratory failure. Appears to be improving ,still needing additional oxygen to walk Interstitial lung disease -NSIP/cryptogenic pneumonia per my discussion with at [facility] yesterday. On immunosuppressive therapy with prednisone/CellCept/Rituxan infusion,possible flare No changes to PO steroids( see yesterday recommendations), so will move to start PO Prednisone AND taper IV Solu-medrol. plan is to increase Prednisone as tolerated,taper IV ABDIEL. On BiPAP at home plus oxygen 2 L/m.Well tolerated Pre-diabetes. Per history. IMS/hospitalist to follow BS, sliding scale and insulin while on steroids and adjust as needed Hypertension Obesity Recommendations Keep oxymetry over 90% at all times Taper down Solu-Medrol Start Prednisone 30 mg daily-see orders , adjust up,per clinical and blood sugar status Continue CellCept at current dose. Allergic to TMP/SMX, no prophylaxis Monitor blood sugars levels, sliding scale and treat as needed Levofloxacin x 5-7 days. DVT prophylaxis The patient can use his BiPAP at the hospital with oxygen bled in at 2-4 L per minute Walk daily in am, monitor exercise hypoxemia and need for additional oxygen support on exercise Discussed with patient in detail. and daughter now on [place], [place], securing lodging. Per my discussion with at [facility], he may not need at this point [facility] level of care,since he's slowly improving. If this continues at current rate, he may be amenable to be DH in 2-3 days , to PO meds plus oxygen.architectural manager can coordinate oxygen support and transport. If this is the case, Dr. Armstrong stated that he can be seen at [facility] anytime,they simply need to be called ahead. If he stumbles or is unable to progress further, [facility] can be called again, transfer center [phone]. triage tel is [phone]. Patient also has [facility] pager on his phone. Hopefully he can be DH in 2-3 days Subjective Date of service: 05/11/18 Interval history: Feels better, no events overnight. Able to walk yesterday- but deast's on 4 LPM , needed 6 LPM to walk. No fever, Sputum decreased Objective Vital Signs - 12hr 05/10/18 05/10/18 05/10/18 20:32 20:33 22:06 Temperature 97.9 F Pulse Rate 84 Pulse Rate [ 78 Throughout] Respiratory 18 Rate Respiratory 20 Rate [ Throughout] Blood Pressure 135/82 O2 Sat by Pulse 98 96 Oximetry 05/10/18 05/11/18 05/11/18 23:31 01:01 05:07 Temperature 97.5 F L 98.2 F Pulse Rate 82 77 74 Pulse Rate [ Throughout] Respiratory 20 18 20 Rate Respiratory Rate [ Throughout] Blood Pressure 115/58 132/84 O2 Sat by Pulse 91 95 97 Oximetry Constitutional: no acute distress, alert Eyes: non-icteric ENT: oropharynx moist Ascultation: Bilateral: clear, diminished breath sounds, rales (fine, and inspiratory, bilateral bases) Integumentary: normal Extremities: no cyanosis, no edema Neurologic: normal mental status, non-focal exam, CN II-XII normal, motor strength normal and Psychiatric: mood appropriate CBC and BMP: 05/09/18 04:36 05/09/18 04:36 ABG, PT/INR, D-dimer: PT/INR, D-dimer PT 13.5 Sec. (12.2-14.9) 05/06/18 13:30 INR 0.98 (0.87-1.13) 05/06/18 13:30 D-Dimer 269.50 ng/mlDDU (0-234) H 05/06/18 13:30 Abnormal lab findings: Abnormal Labs 05/06/18 05/06/18 05/06/18 13:30 13:30 13:30 WBC Seg Neuts % (Manual) 90.0 H Lymphocytes % (Manual) 2.0 L Seg Neutrophils # Man 8.3 H Lymphocytes # (Manual) 0.2 L D-Dimer 269.50 H Chloride BUN Creatinine Glucose 142 H POC Glucose Hemoglobin A1c Albumin 3.8 L 05/07/18 05/07/18 05/07/18 04:22 17:56 21:47 WBC Seg Neuts % (Manual) Lymphocytes % (Manual) Seg Neutrophils # Man Lymphocytes # (Manual) D-Dimer Chloride BUN Creatinine 0.7 L Glucose 177 H POC Glucose 287 H 321 H Hemoglobin A1c Albumin 05/08/18 05/08/18 05/08/18 04:28 04:28 07:54 WBC 14.7 H Seg Neuts % (Manual) 99.0 H Lymphocytes % (Manual) 0 L Seg Neutrophils # Man 14.6 H Lymphocytes # (Manual) 0.0 L D-Dimer Chloride BUN Creatinine Glucose 224 H POC Glucose 188 H Hemoglobin A1c Albumin 3.8 L 05/08/18 05/08/18 05/08/18 12:03 15:49 21:45 WBC Seg Neuts % (Manual) Lymphocytes % (Manual) Seg Neutrophils # Man Lymphocytes # (Manual) D-Dimer Chloride BUN Creatinine Glucose POC Glucose 233 H 235 H 280 H Hemoglobin A1c Albumin 05/09/18 05/09/18 05/09/18 04:36 04:36 04:36 WBC 15.4 H Seg Neuts % (Manual) Lymphocytes % (Manual) Seg Neutrophils # Man Lymphocytes # (Manual) D-Dimer Chloride 95.1 L BUN 21 H Creatinine Glucose 251 H POC Glucose Hemoglobin A1c 7.6 H Albumin 05/09/18 05/09/18 05/09/18 07:34 11:45 16:58 WBC Seg Neuts % (Manual) Lymphocytes % (Manual) Seg Neutrophils # Man Lymphocytes # (Manual) D-Dimer Chloride BUN Creatinine Glucose POC Glucose 208 H 243 H 237 H Hemoglobin A1c Albumin 05/09/18 05/10/18 05/10/18 21:54 07:32 11:38 WBC Seg Neuts % (Manual) Lymphocytes % (Manual) Seg Neutrophils # Man Lymphocytes # (Manual) D-Dimer Chloride BUN Creatinine Glucose POC Glucose 304 H 236 H 238 H Hemoglobin A1c Albumin 05/10/18 05/10/18 16:55 21:33 WBC Seg Neuts % (Manual) Lymphocytes % (Manual) Seg Neutrophils # Man Lymphocytes # (Manual) D-Dimer Chloride BUN Creatinine Glucose POC Glucose 260 H 220 H Hemoglobin A1c Albumin
[2018-05-11] MEDS: HumaLOG SUB-Q SCH ×4 (08:44→22:24)
[2018-05-11] MEDS: DUONEB *Not for PRN Use IH SCH ×5 (09:25→19:44)
[2018-05-11] MEDS: PEPCID PO SCH ×2 (09:34→22:22)
[2018-05-11] MEDS: OYSCO D 500 MG-200 UNIT PO SCH (09:34)
[2018-05-11] MEDS: HCTZ PO SCH (09:34)
[2018-05-11] MEDS: CELLCEPT PO SCH ×2 (09:34→22:21)
[2018-05-11] MEDS: MUCINEX ER PO SCH ×2 (09:34→22:21)
[2018-05-11] MEDS: COZAAR PO SCH (09:35)
[2018-05-11] MEDS: LEVAQUIN PO SCH (09:35)
[2018-05-11] MEDS: COLACE PO SCH ×2 (09:35→22:22)
[2018-05-11] MEDS: PROTONIX PO SCH (09:35)
[2018-05-11] MEDS: LASIX PO SCH (09:35)
[2018-05-11] MEDS: MEPRON PO SCH (09:36)
[2018-05-11] MEDS: PERCOCET 5/325 PO PRN ×2 (09:47→22:43)
[2018-05-11] MEDS ORDERED: LASIX IV NR (10:00)
[2018-05-11] MEDS: SODIUM CHLORIDE FLUSH SYRINGE 10 ML IV SCH ×2 (11:30→22:23)
[2018-05-11] MEDS: DELTASONE PO SCH (12:40)
--- NOTE | 2018-05-11 17:25 | Progress Note ---
Assessment and Plan Assessment and plan: Patient is a 57 yo man with a history of prostate cancer, hypertension, asthma and chronic hypoxic respiratory failure on 4L O2 at home due to ILD on Rituxan who pw SOB. He is visiting from [place] as an evacuee from [facility] [place]. He came without any of his medications including inhalers or nebulizer treatments. Pulse Ox dropped into the mid 80s in ED. He did call his metal bending machine operator, Dr. Gore, from [facility], who suggested that he go to the closest emergency department. pw MERCADO and hypoxia on exertion * CTA chest IMPRESSION: Cardiomegaly Main pulmonary artery caliber larger than ascending aorta may reflect vascular congestion and/or pulmonary arterial hypertension Multiple nonspecific pulmonary parenchymal opacities may be a combination of atelectasis, edema, and/or pneumonia. There may also be an underlying component of scarring Bilateral nonobstructing renal calculi, No CT evidence of PE Acute on chronic respiratory failure with hypoxia Patient needs oxygen on regular basis. [facility] [place], on 4L at [place] IV solumedrol and Duonebs initiated Patient would like to be transfered to [facility], since his doctors are there. Dr Curtis called Dr Gore x2 and left a message, was dw hospice case manager, plan to transfer if they accept Interstitial lung disease with suspected bilateral aspiration pneumonia/ pneumonitis Duonebs IV Levaquin and IV Solumedrol, Patient on Prednisone 10 mg to 15 mg po qd at home, consulted Pulmonology, await their evaluation, add mucinex Leukocytosis, most likely reactive from iv steroids HTN (hypertension) Cont antihypertensives, low salt diet DVT prophylaxis On Lovenox Hyperglycemia worsened by steroids: a1c is 7.6, on ssi GI prophylaxis: oral protonix Nutrition: cho/cardiac Advance care planning: full code Disposition: continue inpatient care, await Pulmonology evaluation, anticipate dc in 2-3 days, patient should be able to ambulate with oxygen and maintain sat above 90 prior to dc History Interval history: The nurse noted that patient desaturates on ambulation, he was ambulating on 4 L oxygen Review of systems Constitutional: No fevers, no malaise, no joint pains CVS: No chest pain, no orthopnea, , no pedal edema GI: No abdominal pain, no diarrhea, no vomiting, no constipation Respiratory: Complaining of dyspnea on exertion, no wheezing, no coughing Hospitalist Physical - Physical exam Narrative exam: General.: Appears well, no distress, nontoxic HEENT: Moist mucous membranes, extraocular muscles intact, no lymphadenopathy Neck: supple Cardiac: S1-S2 heard Lungs: Dry crackles, decreased air entry Abdomen: soft , nontender, nondistended, bowel sounds positive Extremities: no edema clubbing or cyanosis Skin: no rash or lesions Neurologic: no gross focal deficits Psych: appropriate behavior, appropriate mood, corporative, judgment intact - Constitutional Vitals: Temp Pulse Resp BP Pulse Ox 97.9 F 75 18 115/84 98 05/11/18 11:45 05/11/18 15:00 05/11/18 15:00 05/11/18 11:45 05/11/18 09:32 General appearance: Present: no acute distress, well-nourished Results - Labs CBC & Chem 7: 05/09/18 04:36 05/09/18 04:36 Labs: Laboratory Last Values WBC 15.4 K/mm3 (4.5-11.0) H 05/09/18 04:36 RBC 5.03 M/mm3 (3.65-5.03) 05/09/18 04:36 Hgb 14.6 gm/dl (11.8-15.2) 05/09/18 04:36 Hct 43.6 % (35.5-45.6) 05/09/18 04:36 MCV 87 fl (84-94) 05/09/18 04:36 MCH 29 pg (28-32) 05/09/18 04:36 MCHC 33 % (32-34) 05/09/18 04:36 RDW 13.9 % (13.2-15.2) 05/09/18 04:36 Plt Count 328 K/mm3 (140-440) 05/09/18 04:36 Add Manual Diff Complete 05/08/18 04:28 Total Counted 100 05/08/18 04:28 Seg Neutrophils % Chief Safety Officer 05/08/18 04:28 Seg Neuts % (Manual) 99.0 % (40.0-70.0) H 05/08/18 04:28 Band Neutrophils % 0 % 05/08/18 04:28 Lymphocytes % (Manual) 0 % (13.4-35.0) L 05/08/18 04:28 Reactive Lymphs % (Man) 0 % 05/08/18 04:28 Monocytes % (Manual) 1.0 % (0.0-7.3) 05/08/18 04:28 Eosinophils % (Manual) 0 % (0.0-4.3) 05/08/18 04:28 Basophils % (Manual) 0 % (0.0-1.8) 05/08/18 04:28 Metamyelocytes % 0 % 05/08/18 04:28 Myelocytes % 0 % 05/08/18 04:28 Promyelocytes % 0 % 05/08/18 04:28 Blast Cells % 0 % 05/08/18 04:28 Nucleated RBC % Not Reportable 05/08/18 04:28 Seg Neutrophils # Man 14.6 K/mm3 (1.8-7.7) H 05/08/18 04:28 Band Neutrophils # 0.0 K/mm3 05/08/18 04:28 Lymphocytes # (Manual) 0.0 K/mm3 (1.2-5.4) L 05/08/18 04:28 Abs React Lymphs (Man) 0.0 K/mm3 05/08/18 04:28 Monocytes # (Manual) 0.1 K/mm3 (0.0-0.8) 05/08/18 04:28 Eosinophils # (Manual) 0.0 K/mm3 (0.0-0.4) 05/08/18 04:28 Basophils # (Manual) 0.0 K/mm3 (0.0-0.1) 05/08/18 04:28 Metamyelocytes # 0.0 K/mm3 05/08/18 04:28 Myelocytes # 0.0 K/mm3 05/08/18 04:28 Promyelocytes # 0.0 K/mm3 05/08/18 04:28 Blast Cells # 0.0 K/mm3 05/08/18 04:28 WBC Morphology Not Reportable 05/08/18 04:28 Hypersegmented Neuts Not Reportable 05/08/18 04:28 Hyposegmented Neuts Not Reportable 05/08/18 04:28 Hypogranular Neuts Not Reportable 05/08/18 04:28 Smudge Cells Not Reportable 05/08/18 04:28 Toxic Granulation Not Reportable 05/08/18 04:28 Toxic Vacuolation Not Reportable 05/08/18 04:28 Dohle Bodies Not Reportable 05/08/18 04:28 Pelger-Huet Anomaly Not Reportable 05/08/18 04:28 Ines Rods Not Reportable 05/08/18 04:28 Platelet Estimate Consistent w auto 05/08/18 04:28 Clumped Platelets Not Reportable 05/08/18 04:28 Plt Clumps, EDTA Not Reportable 05/08/18 04:28 Large Platelets Not Reportable 05/08/18 04:28 Giant Platelets Not Reportable 05/08/18 04:28 Platelet Satelliting Not Reportable 05/08/18 04:28 Plt Morphology Comment Not Reportable 05/08/18 04:28 RBC Morphology Not Reportable 05/08/18 04:28 Dimorphic RBCs Not Reportable 05/08/18 04:28 Polychromasia Not Reportable 05/08/18 04:28 Hypochromasia Not Reportable 05/08/18 04:28 Poikilocytosis Not Reportable 05/08/18 04:28 Anisocytosis Not Reportable 05/08/18 04:28 Microcytosis Not Reportable 05/08/18 04:28 Macrocytosis Not Reportable 05/08/18 04:28 Spherocytes Not Reportable 05/08/18 04:28 Pappenheimer Bodies Not Reportable 05/08/18 04:28 Sickle Cells Not Reportable 05/08/18 04:28 Target Cells Not Reportable 05/08/18 04:28 Tear Drop Cells Not Reportable 05/08/18 04:28 Ovalocytes Not Reportable 05/08/18 04:28 Helmet Cells Not Reportable 05/08/18 04:28 Delgado-[place] Bodies Not Reportable 05/08/18 04:28 [place] Rings Not Reportable 05/08/18 04:28 Dustin Cells Not Reportable 05/08/18 04:28 Bite Cells Not Reportable 05/08/18 04:28 Crenated Cell Not Reportable 05/08/18 04:28 Elliptocytes Not Reportable 05/08/18 04:28 Acanthocytes (Spur) Not Reportable 05/08/18 04:28 Rouleaux Not Reportable 05/08/18 04:28 Hemoglobin C Crystals Not Reportable 05/08/18 04:28 Schistocytes Not Reportable 05/08/18 04:28 Malaria parasites Not Reportable 05/08/18 04:28 Herberth Bodies Not Reportable 05/08/18 04:28 Hem Pathologist Commnt No 05/08/18 04:28 PT 13.5 Sec. (12.2-14.9) 05/06/18 13:30 INR 0.98 (0.87-1.13) 05/06/18 13:30 APTT 25.2 Sec. (24.2-36.6) 05/06/18 13:30 D-Dimer 269.50 ng/mlDDU (0-234) H 05/06/18 13:30 Sodium 137 mmol/L (137-145) 05/09/18 04:36 Potassium 4.2 mmol/L (3.6-5.0) 05/09/18 04:36 Chloride 95.1 mmol/L (98-107) L 05/09/18 04:36 Carbon Dioxide 26 mmol/L (22-30) 05/09/18 04:36 Anion Gap 20 mmol/L 05/09/18 04:36 BUN 21 mg/dL (9-20) H 05/09/18 04:36 Creatinine 0.9 mg/dL (0.8-1.5) 05/09/18 04:36 Estimated GFR > 60 ml/min 05/09/18 04:36 BUN/Creatinine Ratio 23 % 05/09/18 04:36 Glucose 251 mg/dL (75-100) H 05/09/18 04:36 POC Glucose 328 (70-105) H 05/11/18 17:04 Hemoglobin A1c 7.6 % (4-6) H 05/09/18 04:36 Calcium 9.3 mg/dL (8.4-10.2) 05/09/18 04:36 Total Bilirubin 0.20 mg/dL (0.1-1.2) 05/08/18 04:28 AST 12 units/L (5-40) 05/08/18 04:28 ALT 14 units/L (7-56) 05/08/18 04:28 Alkaline Phosphatase 71 units/L (35-129) 05/08/18 04:28 Troponin T < 0.010 ng/mL (0.00-0.029) 05/06/18 13:30 NT-Pro-B Natriuret Pep 17.56 pg/mL (0-900) 05/06/18 13:30 Total Protein 7.7 g/dL (6.3-8.2) 05/08/18 04:28 Albumin 3.8 g/dL (3.9-5) L 05/08/18 04:28 Albumin/Globulin Ratio 1.0 % 05/08/18 04:28
[2018-05-11] MEDS ORDERED: LANTUS SUB-Q SCH (22:00)
[2018-05-11] MEDS: DESYREL PO SCH (22:22)
[2018-05-11] MEDS: FLOMAX PO SCH (22:22)
[2018-05-12] MEDS: TESSALON PERLES PO SCH ×3 (05:31→21:55)
[2018-05-12] MEDS: SOLU-Medrol IV SCH ×3 (05:32→21:54)
[2018-05-12] MEDS: HEPARIN SUB-Q SCH ×3 (05:32→21:53)
[2018-05-12] MEDS: DUONEB *Not for PRN Use IH SCH ×4 (07:25→20:26)
[2018-05-12] MEDS: HumaLOG SUB-Q SCH ×4 (09:11→21:53)
[2018-05-12] MEDS: PERCOCET 5/325 PO PRN (09:14)
[2018-05-12] MEDS: LEVAQUIN PO SCH (09:15)
[2018-05-12] MEDS: DELTASONE PO SCH (09:17)
[2018-05-12] MEDS: COLACE PO SCH ×2 (09:18→21:54)
[2018-05-12] MEDS: MUCINEX ER PO SCH ×2 (09:19→21:53)
[2018-05-12] MEDS: PROTONIX PO SCH (09:19)
[2018-05-12] MEDS: PEPCID PO SCH ×2 (09:19→21:53)
[2018-05-12] MEDS: LASIX PO SCH (09:19)
[2018-05-12] MEDS: COZAAR PO SCH (09:19)
[2018-05-12] MEDS: HCTZ PO SCH (09:20)
[2018-05-12] MEDS: CELLCEPT PO SCH ×2 (09:20→21:53)
[2018-05-12] MEDS: MEPRON PO SCH (09:21)
[2018-05-12] MEDS: OYSCO D 500 MG-200 UNIT PO SCH (09:22)
--- NOTE | 2018-05-12 10:41 | Progress Note ---
Hospitalist Physical - Constitutional Vitals: Temp Pulse Resp BP Pulse Ox 99.0 F 74 18 138/75 99 05/12/18 05:24 05/12/18 09:19 05/12/18 07:25 05/12/18 09:19 05/12/18 07:25 General appearance: Present: no acute distress, well-nourished Results - Labs CBC & Chem 7: 05/09/18 04:36 05/09/18 04:36 Labs: Laboratory Last Values WBC 15.4 K/mm3 (4.5-11.0) H 05/09/18 04:36 RBC 5.03 M/mm3 (3.65-5.03) 05/09/18 04:36 Hgb 14.6 gm/dl (11.8-15.2) 05/09/18 04:36 Hct 43.6 % (35.5-45.6) 05/09/18 04:36 MCV 87 fl (84-94) 05/09/18 04:36 MCH 29 pg (28-32) 05/09/18 04:36 MCHC 33 % (32-34) 05/09/18 04:36 RDW 13.9 % (13.2-15.2) 05/09/18 04:36 Plt Count 328 K/mm3 (140-440) 05/09/18 04:36 Add Manual Diff Complete 05/08/18 04:28 Total Counted 100 05/08/18 04:28 Seg Neutrophils % Ethnoarchaeologist 05/08/18 04:28 Seg Neuts % (Manual) 99.0 % (40.0-70.0) H 05/08/18 04:28 Band Neutrophils % 0 % 05/08/18 04:28 Lymphocytes % (Manual) 0 % (13.4-35.0) L 05/08/18 04:28 Reactive Lymphs % (Man) 0 % 05/08/18 04:28 Monocytes % (Manual) 1.0 % (0.0-7.3) 05/08/18 04:28 Eosinophils % (Manual) 0 % (0.0-4.3) 05/08/18 04:28 Basophils % (Manual) 0 % (0.0-1.8) 05/08/18 04:28 Metamyelocytes % 0 % 05/08/18 04:28 Myelocytes % 0 % 05/08/18 04:28 Promyelocytes % 0 % 05/08/18 04:28 Blast Cells % 0 % 05/08/18 04:28 Nucleated RBC % Not Reportable 05/08/18 04:28 Seg Neutrophils # Man 14.6 K/mm3 (1.8-7.7) H 05/08/18 04:28 Band Neutrophils # 0.0 K/mm3 05/08/18 04:28 Lymphocytes # (Manual) 0.0 K/mm3 (1.2-5.4) L 05/08/18 04:28 Abs React Lymphs (Man) 0.0 K/mm3 05/08/18 04:28 Monocytes # (Manual) 0.1 K/mm3 (0.0-0.8) 05/08/18 04:28 Eosinophils # (Manual) 0.0 K/mm3 (0.0-0.4) 05/08/18 04:28 Basophils # (Manual) 0.0 K/mm3 (0.0-0.1) 05/08/18 04:28 Metamyelocytes # 0.0 K/mm3 05/08/18 04:28 Myelocytes # 0.0 K/mm3 05/08/18 04:28 Promyelocytes # 0.0 K/mm3 05/08/18 04:28 Blast Cells # 0.0 K/mm3 05/08/18 04:28 WBC Morphology Not Reportable 05/08/18 04:28 Hypersegmented Neuts Not Reportable 05/08/18 04:28 Hyposegmented Neuts Not Reportable 05/08/18 04:28 Hypogranular Neuts Not Reportable 05/08/18 04:28 Smudge Cells Not Reportable 05/08/18 04:28 Toxic Granulation Not Reportable 05/08/18 04:28 Toxic Vacuolation Not Reportable 05/08/18 04:28 Dohle Bodies Not Reportable 05/08/18 04:28 Pelger-Huet Anomaly Not Reportable 05/08/18 04:28 Ines Rods Not Reportable 05/08/18 04:28 Platelet Estimate Consistent w auto 05/08/18 04:28 Clumped Platelets Not Reportable 05/08/18 04:28 Plt Clumps, EDTA Not Reportable 05/08/18 04:28 Large Platelets Not Reportable 05/08/18 04:28 Giant Platelets Not Reportable 05/08/18 04:28 Platelet Satelliting Not Reportable 05/08/18 04:28 Plt Morphology Comment Not Reportable 05/08/18 04:28 RBC Morphology Not Reportable 05/08/18 04:28 Dimorphic RBCs Not Reportable 05/08/18 04:28 Polychromasia Not Reportable 05/08/18 04:28 Hypochromasia Not Reportable 05/08/18 04:28 Poikilocytosis Not Reportable 05/08/18 04:28 Anisocytosis Not Reportable 05/08/18 04:28 Microcytosis Not Reportable 05/08/18 04:28 Macrocytosis Not Reportable 05/08/18 04:28 Spherocytes Not Reportable 05/08/18 04:28 Pappenheimer Bodies Not Reportable 05/08/18 04:28 Sickle Cells Not Reportable 05/08/18 04:28 Target Cells Not Reportable 05/08/18 04:28 Tear Drop Cells Not Reportable 05/08/18 04:28 Ovalocytes Not Reportable 05/08/18 04:28 Helmet Cells Not Reportable 05/08/18 04:28 Delgado-[place] Bodies Not Reportable 05/08/18 04:28 [place] Rings Not Reportable 05/08/18 04:28 Dustin Cells Not Reportable 05/08/18 04:28 Bite Cells Not Reportable 05/08/18 04:28 Crenated Cell Not Reportable 05/08/18 04:28 Elliptocytes Not Reportable 05/08/18 04:28 Acanthocytes (Spur) Not Reportable 05/08/18 04:28 Rouleaux Not Reportable 05/08/18 04:28 Hemoglobin C Crystals Not Reportable 05/08/18 04:28 Schistocytes Not Reportable 05/08/18 04:28 Malaria parasites Not Reportable 05/08/18 04:28 Herberth Bodies Not Reportable 05/08/18 04:28 Hem Pathologist Commnt No 05/08/18 04:28 PT 13.5 Sec. (12.2-14.9) 05/06/18 13:30 INR 0.98 (0.87-1.13) 05/06/18 13:30 APTT 25.2 Sec. (24.2-36.6) 05/06/18 13:30 D-Dimer 269.50 ng/mlDDU (0-234) H 05/06/18 13:30 Sodium 137 mmol/L (137-145) 05/09/18 04:36 Potassium 4.2 mmol/L (3.6-5.0) 05/09/18 04:36 Chloride 95.1 mmol/L (98-107) L 05/09/18 04:36 Carbon Dioxide 26 mmol/L (22-30) 05/09/18 04:36 Anion Gap 20 mmol/L 05/09/18 04:36 BUN 21 mg/dL (9-20) H 05/09/18 04:36 Creatinine 0.9 mg/dL (0.8-1.5) 05/09/18 04:36 Estimated GFR > 60 ml/min 05/09/18 04:36 BUN/Creatinine Ratio 23 % 05/09/18 04:36 Glucose 251 mg/dL (75-100) H 05/09/18 04:36 POC Glucose 213 (70-105) H 05/12/18 07:21 Hemoglobin A1c 7.6 % (4-6) H 05/09/18 04:36 Calcium 9.3 mg/dL (8.4-10.2) 05/09/18 04:36 Total Bilirubin 0.20 mg/dL (0.1-1.2) 05/08/18 04:28 AST 12 units/L (5-40) 05/08/18 04:28 ALT 14 units/L (7-56) 05/08/18 04:28 Alkaline Phosphatase 71 units/L (35-129) 05/08/18 04:28 Troponin T < 0.010 ng/mL (0.00-0.029) 05/06/18 13:30 NT-Pro-B Natriuret Pep 17.56 pg/mL (0-900) 05/06/18 13:30 Total Protein 7.7 g/dL (6.3-8.2) 05/08/18 04:28 Albumin 3.8 g/dL (3.9-5) L 05/08/18 04:28 Albumin/Globulin Ratio 1.0 % 05/08/18 04:28
[2018-05-12] MEDS: SODIUM CHLORIDE FLUSH SYRINGE 10 ML IV SCH ×2 (10:42→21:54)
--- NOTE | 2018-05-12 12:42 | Discharge Summary ---
Providers - Providers Date of Admission: 05/06/18 17:18 Attending physician: BHARAT THORNTON MD 05/07/18 11:46 Consult to Physician [CONS] Routine Comment: Consulting Provider: JOVON AN Physician Instructions: Reason For Exam: worsen respiratory failure, h/o ILD on Rituxan 05/09/18 10:31 Consult to Case Management [CONS] Routine Services Needed at Discharge: Other Notified:: carlitos Primary care physician: CONTENT ADMINISTRATOR Hospitalization Condition: Fair Pertinent studies: * CTA chest IMPRESSION: Cardiomegaly Main pulmonary artery caliber larger than ascending aorta may reflect vascular congestion and/or pulmonary arterial hypertension Multiple nonspecific pulmonary parenchymal opacities may be a combination of atelectasis, edema, and/or pneumonia. There may also be an underlying component of scarring Bilateral nonobstructing renal calculi, No CT evidence of PE Hospital course: Patient is a 57 yo man with a history of prostate cancer, hypertension, asthma and chronic hypoxic respiratory failure on 4L O2 at home due to ILD on Rituxan who pw SOB. He is visiting from [place] as an [place]. He came without any of his medications including inhalers or nebulizer treatments. Pulse Ox dropped into the mid 80s in ED. He did call his stull installer, Dr. Gore, from [facility], who suggested that he go to the closest emergency department. pw MERCADO and hypoxia on exertion. He was admitted for ILD exacerbation. He was seen by stull installer. The patient received steroids, abx, nebulizer treatments. The patient improved and was advised to follow-up with his stull installer in [place]. Diagnosis Acute on chronic respiratory failure with hypoxia Interstitial lung disease with suspected bilateral aspiration pneumonia/ pneumonitis HTN (hypertension) DM with hyperglycemia Disposition: DC-01 TO HOME OR SELFCARE Time spent for discharge: 33 minutes Core Measure Documentation - Palliative Care Palliative Care/ Comfort Measures: Not Applicable - Core Measures Any of the following diagnoses?: none Exam - Physical Exam Narrative exam: General.: Appears well, no distress, nontoxic HEENT: Moist mucous membranes, extraocular muscles intact, no lymphadenopathy Neck: supple Cardiac: S1-S2 heard Lungs: Dry crackles, decreased air entry Abdomen: soft , nontender, nondistended, bowel sounds positive Extremities: no edema clubbing or cyanosis Skin: no rash or lesions Neurologic: no gross focal deficits Psych: appropriate behavior, appropriate mood, corporative, judgment intact - Constitutional Vitals: Temp Pulse Resp BP Pulse Ox 97.7 F 69 22 117/79 96 05/12/18 11:46 05/12/18 11:46 05/12/18 11:46 05/12/18 11:46 05/12/18 11:46 Plan Follow up with: PRIMARY CARE, [Primary Care Provider] - 3-5 Days Prescriptions: ALBUTEROL Inhaler(NF) [VENTOLIN Inhaler(NF)] 1 puff IH Q4H PRN #1 inha PRN Reason: Shortness Of Breath Benzonatate [Tessalon Perles] 100 mg PO Q8HR #30 capsule Empagliflozin [Jardiance] 10 mg PO DAILY #30 tablet predniSONE [Deltasone] 30 mg PO QDAY #40 tablet Symbicort 160-4.5 Mcg Inhaler 2 spray IH DAILY #1
[2018-05-12] MEDS: TYLENOL PO PRN ×2 (15:35→22:06)
[2018-05-12] MEDS: LANTUS SUB-Q SCH (21:52)
[2018-05-12] MEDS: DESYREL PO SCH (21:53)
[2018-05-12] MEDS: FLOMAX PO SCH (21:53)
[2018-05-13] MEDS: PERCOCET 5/325 PO PRN (06:38)
[2018-05-13] MEDS: SOLU-Medrol IV SCH ×2 (06:39→14:15)
[2018-05-13] MEDS: TESSALON PERLES PO SCH ×3 (06:39→21:57)
[2018-05-13] MEDS: HEPARIN SUB-Q SCH ×3 (06:39→21:56)
[2018-05-13] MEDS: DUONEB *Not for PRN Use IH SCH ×4 (07:28→20:15)
[2018-05-13] MEDS: HumaLOG SUB-Q SCH ×4 (08:07→21:56)
--- NOTE | 2018-05-13 10:03 | Progress Note ---
Subjective Interval history: Attempted to see patient. Patient refused to answer questions and when he responded was rude. Thanked patient and left Objective - Constitutional Vitals: Vital Signs - 12hr 05/12/18 05/13/18 05/13/18 22:43 05:30 07:28 Temperature 97.8 F 98.4 F Pulse Rate 78 Pulse Rate [ 80 Anterior Bilateral Throughout] Respiratory 20 20 Rate Respiratory 18 Rate [Anterior Bilateral Throughout] Blood Pressure 144/83 139/77 O2 Sat by Pulse 97 98 Oximetry 05/13/18 07:38 Temperature Pulse Rate Pulse Rate [ 76 Anterior Bilateral Throughout] Respiratory Rate Respiratory 18 Rate [Anterior Bilateral Throughout] Blood Pressure O2 Sat by Pulse Oximetry - Labs CBC & Chem 7: 05/09/18 04:36 05/09/18 04:36 Labs: Abnormal lab results 05/12/18 05/12/18 05/13/18 Range/Units 16:13 21:27 07:41 POC Glucose 198 H 264 H 254 H (70-105)
[2018-05-13] MEDS: CELLCEPT PO SCH ×2 (10:10→21:55)
[2018-05-13] MEDS: HCTZ PO SCH (10:11)
[2018-05-13] MEDS: COLACE PO SCH ×2 (10:11→21:56)
[2018-05-13] MEDS: LASIX PO SCH (10:11)
[2018-05-13] MEDS: PROTONIX PO SCH (10:11)
[2018-05-13] MEDS: OYSCO D 500 MG-200 UNIT PO SCH (10:11)
[2018-05-13] MEDS: COZAAR PO SCH (10:11)
[2018-05-13] MEDS: PEPCID PO SCH ×2 (10:12→21:55)
[2018-05-13] MEDS: MUCINEX ER PO SCH ×2 (10:12→21:54)
[2018-05-13] MEDS: MEPRON PO SCH (10:12)
[2018-05-13] MEDS: DELTASONE PO SCH (10:12)
[2018-05-13] MEDS: LEVAQUIN PO SCH (10:12)
[2018-05-13] MEDS: SODIUM CHLORIDE FLUSH SYRINGE 10 ML IV SCH ×2 (10:12→21:56)
--- NOTE | 2018-05-13 16:34 | Event Note ---
patient was dc yesterday but refused to leave, he is refusing to be seen by doctors and insisting on staying in the hospital for as long as he wants. I have sent a message to senior case manager to provide oxygen for him so that he may leave
[2018-05-13] MEDS ORDERED: MIRALAX 3350 PO PRN (16:43)
[2018-05-13] MEDS: LANTUS SUB-Q SCH (21:54)
[2018-05-13] MEDS: DESYREL PO SCH (21:55)
[2018-05-13] MEDS: FLOMAX PO SCH (21:55)
[2018-05-13] MEDS: TYLENOL PO PRN (22:00)
[2018-05-14] MEDS: PERCOCET 5/325 PO PRN (06:22)
[2018-05-14] MEDS: HEPARIN SUB-Q SCH ×2 (06:22→13:15)
[2018-05-14] MEDS: TESSALON PERLES PO SCH ×2 (06:22→13:15)
[2018-05-14] MEDS: HumaLOG SUB-Q SCH ×2 (07:36→12:03)
[2018-05-14] MEDS: DUONEB *Not for PRN Use IH SCH ×2 (08:24→12:02)
[2018-05-14] MEDS: HCTZ PO SCH (09:28)
[2018-05-14] MEDS: COLACE PO SCH (09:28)
[2018-05-14] MEDS: MEPRON PO SCH (09:28)
[2018-05-14] MEDS: DELTASONE PO SCH (09:28)
[2018-05-14] MEDS: PROTONIX PO SCH (09:28)
[2018-05-14] MEDS: OYSCO D 500 MG-200 UNIT PO SCH (09:29)
[2018-05-14] MEDS: LASIX PO SCH (09:29)
[2018-05-14] MEDS: COZAAR PO SCH (09:29)
[2018-05-14] MEDS: CELLCEPT PO SCH (09:29)
[2018-05-14] MEDS: MUCINEX ER PO SCH (09:29)
[2018-05-14] MEDS: PEPCID PO SCH (09:29)
[2018-05-14] MEDS: SODIUM CHLORIDE FLUSH SYRINGE 10 ML IV SCH (09:32)
--- NOTE | 2018-05-14 09:57 | Progress Note ---
Hospitalist Physical - Constitutional Vitals: Temp Pulse Resp BP Pulse Ox 98.0 F 103 H 20 143/83 96 05/14/18 06:12 05/14/18 09:29 05/14/18 06:12 05/14/18 09:29 05/14/18 06:12 General appearance: Present: no acute distress, well-nourished Results - Labs CBC & Chem 7: 05/09/18 04:36 05/09/18 04:36 Labs: Laboratory Last Values WBC 15.4 K/mm3 (4.5-11.0) H 05/09/18 04:36 RBC 5.03 M/mm3 (3.65-5.03) 05/09/18 04:36 Hgb 14.6 gm/dl (11.8-15.2) 05/09/18 04:36 Hct 43.6 % (35.5-45.6) 05/09/18 04:36 MCV 87 fl (84-94) 05/09/18 04:36 MCH 29 pg (28-32) 05/09/18 04:36 MCHC 33 % (32-34) 05/09/18 04:36 RDW 13.9 % (13.2-15.2) 05/09/18 04:36 Plt Count 328 K/mm3 (140-440) 05/09/18 04:36 Add Manual Diff Complete 05/08/18 04:28 Total Counted 100 05/08/18 04:28 Seg Neutrophils % Insurance Agent 05/08/18 04:28 Seg Neuts % (Manual) 99.0 % (40.0-70.0) H 05/08/18 04:28 Band Neutrophils % 0 % 05/08/18 04:28 Lymphocytes % (Manual) 0 % (13.4-35.0) L 05/08/18 04:28 Reactive Lymphs % (Man) 0 % 05/08/18 04:28 Monocytes % (Manual) 1.0 % (0.0-7.3) 05/08/18 04:28 Eosinophils % (Manual) 0 % (0.0-4.3) 05/08/18 04:28 Basophils % (Manual) 0 % (0.0-1.8) 05/08/18 04:28 Metamyelocytes % 0 % 05/08/18 04:28 Myelocytes % 0 % 05/08/18 04:28 Promyelocytes % 0 % 05/08/18 04:28 Blast Cells % 0 % 05/08/18 04:28 Nucleated RBC % Not Reportable 05/08/18 04:28 Seg Neutrophils # Man 14.6 K/mm3 (1.8-7.7) H 05/08/18 04:28 Band Neutrophils # 0.0 K/mm3 05/08/18 04:28 Lymphocytes # (Manual) 0.0 K/mm3 (1.2-5.4) L 05/08/18 04:28 Abs React Lymphs (Man) 0.0 K/mm3 05/08/18 04:28 Monocytes # (Manual) 0.1 K/mm3 (0.0-0.8) 05/08/18 04:28 Eosinophils # (Manual) 0.0 K/mm3 (0.0-0.4) 05/08/18 04:28 Basophils # (Manual) 0.0 K/mm3 (0.0-0.1) 05/08/18 04:28 Metamyelocytes # 0.0 K/mm3 05/08/18 04:28 Myelocytes # 0.0 K/mm3 05/08/18 04:28 Promyelocytes # 0.0 K/mm3 05/08/18 04:28 Blast Cells # 0.0 K/mm3 05/08/18 04:28 WBC Morphology Not Reportable 05/08/18 04:28 Hypersegmented Neuts Not Reportable 05/08/18 04:28 Hyposegmented Neuts Not Reportable 05/08/18 04:28 Hypogranular Neuts Not Reportable 05/08/18 04:28 Smudge Cells Not Reportable 05/08/18 04:28 Toxic Granulation Not Reportable 05/08/18 04:28 Toxic Vacuolation Not Reportable 05/08/18 04:28 Dohle Bodies Not Reportable 05/08/18 04:28 Pelger-Huet Anomaly Not Reportable 05/08/18 04:28 Ines Rods Not Reportable 05/08/18 04:28 Platelet Estimate Consistent w auto 05/08/18 04:28 Clumped Platelets Not Reportable 05/08/18 04:28 Plt Clumps, EDTA Not Reportable 05/08/18 04:28 Large Platelets Not Reportable 05/08/18 04:28 Giant Platelets Not Reportable 05/08/18 04:28 Platelet Satelliting Not Reportable 05/08/18 04:28 Plt Morphology Comment Not Reportable 05/08/18 04:28 RBC Morphology Not Reportable 05/08/18 04:28 Dimorphic RBCs Not Reportable 05/08/18 04:28 Polychromasia Not Reportable 05/08/18 04:28 Hypochromasia Not Reportable 05/08/18 04:28 Poikilocytosis Not Reportable 05/08/18 04:28 Anisocytosis Not Reportable 05/08/18 04:28 Microcytosis Not Reportable 05/08/18 04:28 Macrocytosis Not Reportable 05/08/18 04:28 Spherocytes Not Reportable 05/08/18 04:28 Pappenheimer Bodies Not Reportable 05/08/18 04:28 Sickle Cells Not Reportable 05/08/18 04:28 Target Cells Not Reportable 05/08/18 04:28 Tear Drop Cells Not Reportable 05/08/18 04:28 Ovalocytes Not Reportable 05/08/18 04:28 Helmet Cells Not Reportable 05/08/18 04:28 Delgado-[place] Bodies Not Reportable 05/08/18 04:28 [place] Rings Not Reportable 05/08/18 04:28 [place] Cells Not Reportable 05/08/18 04:28 Bite Cells Not Reportable 05/08/18 04:28 Crenated Cell Not Reportable 05/08/18 04:28 Elliptocytes Not Reportable 05/08/18 04:28 Acanthocytes (Spur) Not Reportable 05/08/18 04:28 Rouleaux Not Reportable 05/08/18 04:28 Hemoglobin C Crystals Not Reportable 05/08/18 04:28 Schistocytes Not Reportable 05/08/18 04:28 Malaria parasites Not Reportable 05/08/18 04:28 Herberth Bodies Not Reportable 05/08/18 04:28 Hem Pathologist Commnt No 05/08/18 04:28 PT 13.5 Sec. (12.2-14.9) 05/06/18 13:30 INR 0.98 (0.87-1.13) 05/06/18 13:30 APTT 25.2 Sec. (24.2-36.6) 05/06/18 13:30 D-Dimer 269.50 ng/mlDDU (0-234) H 05/06/18 13:30 Sodium 137 mmol/L (137-145) 05/09/18 04:36 Potassium 4.2 mmol/L (3.6-5.0) 05/09/18 04:36 Chloride 95.1 mmol/L (98-107) L 05/09/18 04:36 Carbon Dioxide 26 mmol/L (22-30) 05/09/18 04:36 Anion Gap 20 mmol/L 05/09/18 04:36 BUN 21 mg/dL (9-20) H 05/09/18 04:36 Creatinine 0.9 mg/dL (0.8-1.5) 05/09/18 04:36 Estimated GFR > 60 ml/min 05/09/18 04:36 BUN/Creatinine Ratio 23 % 05/09/18 04:36 Glucose 251 mg/dL (75-100) H 05/09/18 04:36 POC Glucose 150 (70-105) H 05/14/18 07:22 Hemoglobin A1c 7.6 % (4-6) H 05/09/18 04:36 Calcium 9.3 mg/dL (8.4-10.2) 05/09/18 04:36 Total Bilirubin 0.20 mg/dL (0.1-1.2) 05/08/18 04:28 AST 12 units/L (5-40) 05/08/18 04:28 ALT 14 units/L (7-56) 05/08/18 04:28 Alkaline Phosphatase 71 units/L (35-129) 05/08/18 04:28 Troponin T < 0.010 ng/mL (0.00-0.029) 05/06/18 13:30 NT-Pro-B Natriuret Pep 17.56 pg/mL (0-900) 05/06/18 13:30 Total Protein 7.7 g/dL (6.3-8.2) 05/08/18 04:28 Albumin 3.8 g/dL (3.9-5) L 05/08/18 04:28 Albumin/Globulin Ratio 1.0 % 05/08/18 04:28
[2018-05-14 12:13] VITALS: BP 114/76
== END 2018-05-14 15:00 | disposition home or self-care (01) | DRG 177 ==
LOC: ED 12:08 → 3A 17:18
PROVIDERS: ADMIT Internal Medicine; ATTEND Internal Medicine
DX: J69.0 Pneumonitis due to inhalation of food and vomit (principal); J96.21 Acute and chronic respiratory failure with hypoxia; Z99.81 Dependence on supplemental oxygen; J84.9 Interstitial pulmonary disease, unspecified; J45.909 Unspecified asthma, uncomplicated; I11.9 Hypertensive heart disease without heart failure; T38.0X5A Adverse effect of glucocorticoids and synthetic analogues, initial encounter; G47.33 Obstructive sleep apnea (adult) (pediatric); E66.9 Obesity, unspecified; N20.0 Calculus of kidney; E11.65 Type 2 diabetes mellitus with hyperglycemia; Y92.89 Other specified places as the place of occurrence of the external cause; Z88.2 Allergy status to sulfonamides; Z68.38 Body mass index [BMI] 38.0-38.9, adult; Z88.8 Allergy status to other drugs, medicaments and biological substances; Z85.46 Personal history of malignant neoplasm of prostate; Z87.891 Personal history of nicotine dependence
CPT/HCPCS: 36415; 71045; 71275; 80048; 80053; 82962; 83036; 83880; 84484; 85007; 85025; 85027; 85379; 85610; 85730; 93005; 93010; 94640; 94760; 96374; A9270-GY; J1644; J1815; J1940; J1956; J2920; J2930; J7512; J7517; Q9967